=== PATIENT | female | born 1980 | race Caucasian/White ===

== ENCOUNTER → 2017-05-15 | Outpatient (CLI) | payer BC ==
[2017-05-15 10:47] LABS: Basophils % (A) 0 %; CH 29.5; Eosinophils # (A) 0.2 k/uL (0-0.7); Eosinophils % (A) 2 %; HCT 40.8 % (34.0-46.0); HGB 13.6 gm/dL (11.4-16.0); Luc # (Auto) 0.21; Luc % (Auto) 3; Lymphocytes # (A) 2.8 k/uL (1.0-4.8); Lymphocytes % (A) 38 %; MCH 29.9 pg (25.0-35.0); MCHC 33.2 g/dL (31.0-37.0); MCV 89.9 fL (80.0-100.0); Monocytes # (A) 0.2 k/uL (0-1.0); Monocytes % (A) 3 %; Neutrophils % (A) 54 %; RBC 4.54 m/uL (3.80-5.40); RDW 12.3 % (11.5-15.5); WBC 7.5 k/uL (3.8-10.6); WBC (Perox) 7.81
== END | disposition home or self-care (01) ==
LOC: LABPAT 10:13
PROVIDERS: ATTEND Obstetrics & Gynecology
DX: Z01.812 Encounter for preprocedural laboratory examination (principal)
CPT/HCPCS: 85025

== ENCOUNTER 2017-05-23 10:54 | Day surgery (SDC) | payer BC ==
[2017-05-17 12:41] VITALS: BMI 38.9
--- NOTE | 2017-05-22 19:48 | P.HPOB ---
History of Present Illness H&P Date: 05/22/17 Chief Complaint: Pelvic pain, family planning This is a 37-year-old female 0 who presents for laparoscopic bilateral tubal ligation via fulguration along with possible lysis of adhesions, possible ablation of endometriosis, and possible drainage of ovarian cysts. She complains of pelvic pain over the last 3 or 4 months that has been severe to the point that is making her vomit a couple times. So far they have been approximately a month apart right after her menses. She is experiencing daily cramping and a pressure sensation in her pelvis. She would like a tubal ligation for family planning purposes and she is no longer pursuing fertility. Pelvic ultrasound showed a uterus measuring 8.8 x 5.0 x 3.8 cm. Endometrial thickness was 8 mm. Both ovaries appeared normal size. Obstetrical history: . Gynecologic history: No history of sexual transmitted diseases. She does have a history of endometriosis diagnosed on laparoscopy in 1998 however she had a repeat laparoscopy in 2004 that was negative for endometriosis. 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 Review of Systems Constitutional: Denies chills, Denies fever Eyes: denies blurred vision, denies pain Ears, nose, mouth and throat: Denies headache, Denies sore throat Cardiovascular: Denies chest pain, Denies shortness of breath Respiratory: Denies cough Gastrointestinal: Reports vomiting (Occasionally with abdominal cramping), Denies abdominal pain, Denies diarrhea Genitourinary: Reports dysmenorrhea, Reports menorrhagia, Reports pelvic pain Menstruation: Reports menses variable, Reports period heavy Musculoskeletal: Reports low back pain Integumentary: Denies pruritus, Denies rash Neurological: Denies numbness, Denies weakness Psychiatric: Denies anxiety, Denies depression Past Medical History Past Medical History: Asthma Additional Past Medical History / Comment(s): History of endometriosis, history of kidney stones History of Any Multi-Drug Resistant Organisms: None Reported Past Surgical History: Cholecystectomy Additional Past Surgical History / Comment(s): laparoscopy x2 Past Anesthesia/Blood Transfusion Reactions: Postoperative Nausea & Vomiting ( PONV) Additional Past Anesthesia/Blood Transfusion Reaction / Comment(s): after cholecystectomy was unable to void and had a catheter Past Psychological History: No Psychological Hx Reported Smoking Status: Never smoker Past Alcohol Use History: None Reported Past Drug Use History: None Reported - Past Family History Mother Family Medical History: No Reported History Medications and Allergies Home Medications Medication Instructions Recorded Confirmed Type Cetirizine HCl [Zyrtec] 10 mg PO DAILY 05/22/17 05/22/17 History Nadolol [Corgard] 20 mg PO DAILY 05/22/17 05/22/17 History l-Norgest/E.estradiol-E.estrad 1 each PO 05/22/17 History [Seasonique 0.15-0.03-0.01 Tab] Allergies Allergy/AdvReac Type Severity Reaction Status Date / Time acetaminophen Allergy Rash/Hives Verified 05/17/17 12:32 [From Darvocet-N] propoxyphene Allergy Rash/Hives Verified 05/17/17 12:32 [From Darvocet-N] Exam Osteopathic Statement: *. No significant issues noted on an osteopathic structural exam other than those noted in the History and Physical/Consult. HEENT: Within normal limits Heart: Regular rate and rhythm Lungs: Clear to auscultation bilaterally Abdomen: Soft, nontender Pelvic exam: Uterus is anteverted, nontender, with mild tenderness in the right adnexa noted. No adnexal masses are palpated. Extremities: Negative Homans Assessment and Plan (1) Pelvic pain Status: Acute (2) Family planning Status: Acute Plan: Proceed with laparoscopic bilateral tubal ligation via fulguration, possible lysis of adhesions, possible ablation of endometriosis, possible drainage of ovarian cysts. I have discussed the risks, benefits, and alternative therapies for the above- mentioned procedure and for both sedation/anesthesia as well as necessary blood products administration, if indicated, as they pertain to this patient. The patient has indicated her understanding and acceptance of the risks and procedures discussed.
[~2017-05-23 10:54] MED LIST: DEXAMETHASONE SOD PHOSPHATE 10 MG/ML 1 ML VIAL IV ONE; LACTATED RINGERS 1,000 ML IV SCH; MIDAZOLAM 2 MG/2 ML VIAL IV PRN; ONDANSETRON 4 MG/2 ML VIAL IVP ONE; Pre Op ABX Message 1 EACH MISC MISCELLANE ONE
[2017-05-23] MEDS ORDERED: LIDOCAINE 1% 20 ML VIAL (10MG/ML) FOR IV START INTRADERMA ONE (11:33)
[2017-05-23] MEDS ORDERED: SCOPOLAMINE 1.5MG/72HR PATCH TRANSDERM ONE (11:34)
[2017-05-23] MEDS ORDERED: KETOROLAC 30 MG/ML 1 ML VIAL ONE (12:07)
[2017-05-23] MEDS ORDERED: PROPOFOL 10 MG/ML 20 ML VIAL IV ONE (12:07)
[2017-05-23] MEDS ORDERED: KETAMINE 10 MG/ML 20 ML VIAL ONE (12:07)
[2017-05-23] MEDS ORDERED: MIDAZOLAM 2 MG/2 ML VIAL ONE (12:07)
[2017-05-23] MEDS ORDERED: NEOSTIGMINE 1 MG/ML 10 ML VIAL ONE (12:07)
[2017-05-23] MEDS ORDERED: LIDOCAINE 1% INJ 10MG/ML (20 ML MDV) ONE (12:07)
[2017-05-23] MEDS ORDERED: GLYCOPYRROLATE 0.2 MG/ML 2 ML VIAL ONE (12:07)
[2017-05-23] MEDS ORDERED: diphenhydrAMINE 50 MG/ML 1 ML VIAL ONE (12:07)
[2017-05-23] MEDS ORDERED: ROCURONIUM BROMIDE 10 MG/ML 10 ML VIAL IV ONE (12:07)
[2017-05-23] MEDS ORDERED: fentaNYL (PF) 50 MCG/ML 2 ML AMP ONE (12:07)
[2017-05-23] MEDS ORDERED: SUCCINYLCHOLINE CHLORIDE 100 MG/5 ML SYR IV ONE (12:07)
[2017-05-23] MEDS ORDERED: MIDAZOLAM 2 MG/2 ML VIAL IV ONE (12:10)
[2017-05-23] MEDS ORDERED: BUPIVACAINE (PF) 0.25% 30 ML VIAL SQ ONE ×2 (12:32→12:56)
--- NOTE | 2017-05-23 13:07 | P.OP ---
Date of Procedure: 05/23/17 Preoperative Diagnosis: Pelvic pain Family planning Postoperative Diagnosis: Same Procedure(s) Performed: Laparoscopy with bilateral tubal ligation via fulguration Implants: Anesthesia: KERI Surgeon: Gwendolyn Gomez Estimated Blood Loss (ml): 5 Pathology: none sent Condition: stable Disposition: same day Indications for Procedure: This is a 37-year-old female 0 who presents for laparoscopic bilateral tubal ligation via fulguration along with possible lysis of adhesions, possible ablation of endometriosis, and possible drainage of ovarian cysts. She complains of pelvic pain over the last 3 or 4 months that has been severe to the point that is making her vomit a couple times. So far they have been approximately a month apart right after her menses. She is experiencing daily cramping and a pressure sensation in her pelvis. She would like a tubal ligation for family planning purposes and she is no longer pursuing fertility. Pelvic ultrasound showed a uterus measuring 8.8 x 5.0 x 3.8 cm. Endometrial thickness was 8 mm. Both ovaries appeared normal size. Operative Findings: Normal uterus tubes and ovaries are noted. Normal-appearing appendix is noted. No evidence of endometriosis or adhesions are noted. Description of Procedure: The patient is taken to the operating room where she is placed in the dorsal lithotomy position. She is prepped and draped in the normal sterile fashion. Bladder is drained with a catheter and then removed. Examination is performed under anesthesia. Uterus is found to be small, anteverted, with no adnexal masses palpated. Next a bivalve speculum was placed in the patient's vagina. A single-tooth tenaculum was used to grasp the anterior lip of the cervix. Uterus is sounded to 8-1/2 cm. The kroner uterine manipulator is inserted through the cervix and the balloon is inflated. The single-tooth tenaculum is removed. Speculum is removed. Next gloves are changed and attention is turned to the abdomen. The inferior umbilical fold was grasped in a transverse fashion. A small transverse incision was made with the scalpel. A hemostat is used to carry the incision down to the underlying layer of fascia. Next a towel clip was placed above the umbilicus. An 11 mm disposable blade this trocar is inserted into the peritoneal cavity under direct visualization. Once intra-abdominal placement is confirmed, the camera was removed and CO2 gas was insufflated. The insert is removed and camera was replaced. No bleeding is noted. The patient is then placed in Trendelenburg position. A small stab incision is made suprapubically and a 5 mm disposable bladeless trochars inserted into the peritoneal cavity under direct visualization. Next a probe was inserted and pelvic contents were inspected. Pictures are taken. Next a bipolar Kleppinger instrument is placed through the inferior trocar in the midportion of each tube is brought away from other structures, completely fulgurated on approximate 3 cm segment of the tube, and then the instrument was removed. Excellent hemostasis was noted on both tubes. Pictures are taken. Once no further findings are noted, the inferior trocar is removed under direct visualization. Pneumoperitoneum is released and then the upper trocar is removed. Fascial incision is closed with 0 Vicryl suture in interrupted figure- of-eight stitch. Next the skin incisions are closed with 3-0 Vicryl suture in a subcuticular fashion. Incision sites are then injected with quarter percent Marcaine. Approximately 7 mL are used. Next the kroner uterine manipulator is desufflated and removed. Minimal bleeding is noted. All sponge and needle counts are correct and the patient is taken to recovery room.
[2017-05-23 13:40] VITALS: TEMP 97.5
[2017-05-23] MEDS: HYDROmorphone 1 MG/ML 1 ML SYRINGE IVP PRN ×2 (13:40→13:46)
[2017-05-23] MEDS ORDERED: LACTATED RINGERS 1,000 ML IV ONE (14:00)
[2017-05-23] MEDS ORDERED: ONDANSETRON 4 MG/2 ML VIAL IVP ONE (14:13)
[2017-05-23] MEDS ORDERED: HYDROcodone/APAP 5-325MG 1 EACH TAB PO ONE (15:45)
[2017-05-23 17:39] VITALS: BP 134/76; PULSE 75; RESP 18
== END 2017-05-23 17:52 | disposition home or self-care (01) ==
LOC: OR 10:54
PROVIDERS: ATTEND Obstetrics & Gynecology
DX: Z30.2 Encounter for sterilization (principal); R10.2 Pelvic and perineal pain; J45.909 Unspecified asthma, uncomplicated; G43.909 Migraine, unspecified, not intractable, without status migrainosus; Z79.3 Long term (current) use of hormonal contraceptives; Z79.899 Other long term (current) drug therapy; Z88.6 Allergy status to analgesic agent; Z88.5 Allergy status to narcotic agent
CPT/HCPCS: 81025; 58670; J2250; J1200; J1100; J2710; J2405; J2001; J3010; J1885; J1170; J0330; J2704

== ENCOUNTER 2018-01-02 17:46 | Emergency (ER) | payer OTHER, BC ==
[2018-01-02] MEDS ORDERED: IBUPROFEN 600 MG TAB PO STA (18:13)
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
--- NOTE | 2018-01-02 19:15 | XR ---
EXAMINATION TYPE: XR wrist complete LT DATE OF EXAM: 01/02/2018 COMPARISON: NONE HISTORY: Pain TECHNIQUE: 4 views FINDINGS: I see no fracture nor dislocation. Joint spaces are normal. IMPRESSION: Normal left wrist exam.
--- NOTE | 2018-01-02 19:16 | XR ---
EXAMINATION TYPE: XR forearm LT DATE OF EXAM: 01/02/2018 COMPARISON: NONE HISTORY: Pain TECHNIQUE: 2 views FINDINGS: I see no fracture nor dislocation. Elbow joint and wrist joint appear intact. IMPRESSION: Negative left forearm exam.
[2018-01-02 19:20] VITALS: BP 142/92; PULSE 74; RESP 18; TEMP 98.2
== END 2018-01-02 19:39 | disposition home or self-care (01) ==
LOC: EC 17:46
DX: S60.212A Contusion of left wrist, initial encounter (principal); Z79.3 Long term (current) use of hormonal contraceptives; Z79.899 Other long term (current) drug therapy; Z88.6 Allergy status to analgesic agent; Z88.5 Allergy status to narcotic agent; V43.52XA Car driver injured in collision with other type car in traffic accident, initial encounter; Y92.411 Interstate highway as the place of occurrence of the external cause
CPT/HCPCS: 99284

== ENCOUNTER → 2018-06-25 | Outpatient (CLI) | payer BC ==
[2018-06-25 17:45] LABS: Basophils % (A) 1 %; Eosinophils # (A) 0.2 k/uL (0-0.7); Eosinophils % (A) 2 %; HCT 37.8 % (34.0-46.0); HGB 12.2 gm/dL (11.4-16.0); Lymphocytes # (A) 3.2 k/uL (1.0-4.8); Lymphocytes % (A) 34 %; MCH 28.4 pg (25.0-35.0); MCHC 32.3 g/dL (31.0-37.0); MCV 87.9 fL (80.0-100.0); Mean Platelet Volume 6.7; Monocytes # (A) 0.5 k/uL (0-1.0); Monocytes % (A) 5 %; Neutrophils # (A) 5.5 k/uL (1.3-7.7); Neutrophils % (A) 57 %; Platelet Count 359 k/uL (150-450); RDW 12.5 % (11.5-15.5); WBC 9.5 k/uL (3.8-10.6)
== END | disposition home or self-care (01) ==
LOC: LABPAT 17:00
PROVIDERS: ATTEND Obstetrics & Gynecology
DX: Z01.812 Encounter for preprocedural laboratory examination (principal)
CPT/HCPCS: 36415; 85025

== ENCOUNTER 2018-07-04 06:16 | Day surgery (SDC) | payer BC, OTHER ==
[2018-07-01 16:09] VITALS: BMI 38.9
--- NOTE | 2018-07-03 17:58 | P.HPOB ---
History of Present Illness H&P Date: 07/03/18 Chief Complaint: Menorrhagia with irregular cycle This is a 38-year-old female 0 para 0 who presents for dilation and curettage with hysteroscopy and NovaSure endometrial ablation secondary to menorrhagia with irregular cycle. She complains of heavy and painful menses. She also has been experiencing some intermittent pelvic pain along with cramping for approximately a week. Pelvic ultrasound showed uterus measuring 8.3 x 3.4 x 3.4 cm with an endometrial thickness of 9 mm. Both ovaries appear normal. She has previously had a tubal ligation for family planning. Obstetrical history: . Gynecologic history: No history of sexually transmitted diseases. She does have a history of infertility and endometriosis. Social history: She is . 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 Review of Systems Constitutional: Denies chills, Denies fever Eyes: denies blurred vision, denies pain Ears, nose, mouth and throat: Denies headache, Denies sore throat Cardiovascular: Denies chest pain, Denies shortness of breath Respiratory: Denies cough Gastrointestinal: Denies abdominal pain, Denies diarrhea, Denies nausea, Denies vomiting Genitourinary: Reports dysmenorrhea, Reports menorrhagia, Reports pelvic pain Menstruation: Reports menses variable Musculoskeletal: Reports low back pain Integumentary: Denies pruritus, Denies rash Neurological: Denies numbness, Denies weakness Psychiatric: Reports anxiety Endocrine: Denies fatigue, Denies weight change Past Medical History Past Medical History: Skin Disorder Additional Past Medical History / Comment(s): heavy menses,migraines-tx nadolol, eczema; history of endometriosis. History of Any Multi-Drug Resistant Organisms: None Reported Past Surgical History: Cholecystectomy, Tubal Ligation Additional Past Surgical History / Comment(s): laparoscopy x2 Past Anesthesia/Blood Transfusion Reactions: Motion Sickness, Postoperative Nausea & Vomiting (PONV) Additional Past Anesthesia/Blood Transfusion Reaction / Comment(s): no hx blood transfusion Past Psychological History: Anxiety Smoking Status: Never smoker Past Alcohol Use History: None Reported Past Drug Use History: None Reported - Past Family History Mother Family Medical History: No Reported History Medications and Allergies Home Medications Medication Instructions Recorded Confirmed Type Cetirizine HCl [Zyrtec] 10 mg PO DAILY 05/22/17 07/01/18 History Nadolol [Corgard] 20 mg PO HS 05/22/17 07/01/18 History Cranberry Fruit Extract [Cranberry] 200 mg PO DAILY 07/01/18 07/01/18 History Multivitamins, Thera [Multivitamin 1 tab PO DAILY 07/01/18 07/01/18 History (formulary)] Allergies Allergy/AdvReac Type Severity Reaction Status Date / Time propoxyphene Allergy Rash/Hives Verified 07/01/18 16:03 [From [place]] Exam Osteopathic Statement: *. No significant issues noted on an osteopathic structural exam other than those noted in the History and Physical/Consult. HEENT: Within normal limits Heart: Regular rate and rhythm Lungs: Clear to auscultation bilaterally Abdomen: Soft, nontender Pelvic exam: Uterus is small, anteverted, with no adnexal masses. Mild right adnexal tenderness is noted. Extremities: Negative Homans. Assessment and Plan (1) Menorrhagia with irregular cycle Status: Acute Code(s): N92.1 - EXCESSIVE AND FREQUENT MENSTRUATION WITH IRREGULAR CYCLE SNOMED Code(s): 107436151 Plan: Proceed with dilation and curettage with hysteroscopy and NovaSure endometrial ablation. I have discussed the risks, benefits, and alternative therapies for the above- mentioned procedure and for both sedation/anesthesia as well as necessary blood products administration, if indicated, as they pertain to this patient. The patient has indicated her understanding and acceptance of the risks and procedures discussed.
[~2018-07-04 06:16] MED LIST changes: +LIDOCAINE 1% 20 ML VIAL (10MG/ML) FOR IV START INTRADERMA PRN; -MIDAZOLAM 2 MG/2 ML VIAL IV PRN
[2018-07-04] MEDS ORDERED: ONDANSETRON 4 MG/2 ML VIAL IVP ONE (06:52)
[2018-07-04] MEDS ORDERED: DEXAMETHASONE SOD PHOSPHATE 10 MG/ML 1 ML VIAL IV ONE (06:55)
[2018-07-04] MEDS ORDERED: KETOROLAC 30 MG/ML 1 ML VIAL ONE (07:28)
[2018-07-04] MEDS ORDERED: fentaNYL (PF) 50 MCG/ML 2 ML AMP ONE (07:28)
[2018-07-04] MEDS ORDERED: MIDAZOLAM 2 MG/2 ML VIAL ONE (07:28)
[2018-07-04] MEDS ORDERED: LIDOCAINE 1% INJ 10MG/ML (20 ML MDV) ONE (07:28)
[2018-07-04] MEDS ORDERED: PROPOFOL 10 MG/ML 20 ML VIAL IV ONE (07:28)
--- NOTE | 2018-07-04 08:06 | P.OP ---
Date of Procedure: 07/04/18 Preoperative Diagnosis: Menorrhagia with irregular cycle Postoperative Diagnosis: Same Procedure(s) Performed: Dilation and curettage with hysteroscopy and attempted and failed NovaSure endometrial ablation Anesthesia: other (Mask general) Surgeon: Gwendolyn Gomez Estimated Blood Loss (ml): 10 Pathology: other (Endometrial curettings) Condition: stable Indications for Procedure: This is a 38-year-old female 0 para 0 who presents for dilation and curettage with hysteroscopy and NovaSure endometrial ablation secondary to menorrhagia with irregular cycle. She complains of heavy and painful menses. She also has been experiencing some intermittent pelvic pain along with cramping for approximately a week. Pelvic ultrasound showed uterus measuring 8.3 x 3.4 x 3.4 cm with an endometrial thickness of 9 mm. Both ovaries appear normal. She has previously had a tubal ligation for family planning. Operative Findings: Uterus is sounded to 9 cm. Cervix is sounded to 3 cm. Upon hysteroscopy, a dyssynchronous endometrial pattern was noted. Neither tubal ostia was completely visualized. A moderate amount of endometrial curettings were obtained. The NovaSure array was unable to be opened completely due to her narrow uterus and did not come out of the red zone on the width. Therefore NovaSure procedure was abandoned. Description of Procedure: The patient was taken to the operating room where she is placed in the dorsal lithotomy position. She is prepped and draped in the normal sterile fashion. Bladder is drained with a catheter. Examination is performed under anesthesia. Uterus is found to be small, anteverted, with no adnexal masses palpated. Next a weighted speculum was placed in the patient's vagina. A right angle retractor was used to visualize the cervix. The anterior lip of the cervix was grasped with a single-tooth tenaculum. The cervix is sounded to 3 cm. Uterus is sounded to 9 cm. Next the cervical os is dilated with Porter dilators until a hysteroscope could be passed. Hysteroscopy was performed using normal saline. The above noted findings are made and pictures are taken. Next the hysteroscope was withdrawn and the cervix is gently dilated further. Next the NovaSure array is inserted and was noted to be very difficult to open completely. At this point the width was still noted to be in the red zone. Despite removing and reinserting the array, it still stayed in the red zone. Therefore the NovaSure portion of the procedure was abandoned. The single- tooth tenaculum was removed from the cervix. Minimal bleeding was noted. All instrument removed from the vagina. All sponge counts are correct. The patient was then taken to recovery room in stable condition.
[2018-07-04 08:19] VITALS: TEMP 97.3
[2018-07-04 08:34] VITALS: RESP 18
[2018-07-04] MEDS: HYDROmorphone 0.5 MG/0.5 ML SYRINGE IVP PRN ×2 (08:36→08:46)
[2018-07-04 10:17] VITALS: BP 117/78; PULSE 74
== END 2018-07-04 10:57 | disposition home or self-care (01) ==
LOC: OR 06:16
PROVIDERS: ATTEND Obstetrics & Gynecology
DX: N92.0 Excessive and frequent menstruation with regular cycle (principal); N92.6 Irregular menstruation, unspecified; G43.909 Migraine, unspecified, not intractable, without status migrainosus; L30.9 Dermatitis, unspecified; Z87.42 Personal history of other diseases of the female genital tract; Z79.899 Other long term (current) drug therapy; Z88.5 Allergy status to narcotic agent
CPT/HCPCS: 58563; 81025; 88305; J2250; J1100; J2405; J2001; J3010; J1885; J2704; J1170

== ENCOUNTER → 2018-09-09 | Outpatient (CLI) | payer BC ==
--- NOTE | 2018-09-09 22:40 | MR ---
EXAMINATION TYPE: MR iac wo/w con DATE OF EXAM: 09/09/2018 COMPARISON: None HISTORY: Rt ear pulsatile hearing loss TECHNIQUE: Multiplanar, multisequence images of the brain and brainstem is performed without and with IV contras t, utilizing 10 mL intravenous Gadavist . Small [id number] high-resolution images through the inte rnal auditory canals. FINDINGS: Diffusion weighted images demonstrate no evidence of a recent infarct or other diffusion ab normality. There is no extra-axial fluid collection. Scattered hyperintensities are present within the deep white matter on inversion recovery T2-weighted sequences, approximately 3-5 lesions are pres ent, largest lesion in the right frontal lobe measures approximately 4 mm on axial image 23, left fro ntal lobe on axial image 32 lesion measures 5 mm. The ventricular system and cisternal spaces are nor mal in size and appearance. The brain volume is age appropriate. Midline structures demonstrate normal morphology. The craniocervical junction appears within normal limits. Post contrast images demonstrate no abnormal enhancement. The dural venous sinuses appear pa tent. The visualized sinuses are clear and the globes are intact. No abnormal enhancement. IMPRESSION: Nonspecific white matter demyelination. Consider migraine headaches, hypertension, Lyme d isease, vasculitis, multiple sclerosis in the appropriate clinical setting.
[2018-09-10 06:41] LABS: Blood Urea Nitrogen 11 mg/dL (7-17)
== END | disposition home or self-care (01) ==
LOC: RADMRIMAIN 20:50
PROVIDERS: ATTEND Otolaryngology
DX: G37.9 Demyelinating disease of central nervous system, unspecified (principal); H93.A1 Pulsatile tinnitus, right ear
CPT/HCPCS: 82565; 70553; 36415; A9585; 84520

== ENCOUNTER 2018-09-18 16:46 | Emergency (ER) | payer BC ==
[2018-09-18 17:00] VITALS: TEMP 98.7
--- NOTE | 2018-09-18 18:30 | ED ---
Chest Pain HPI - General Chief Complaint: Chest Pain Stated Complaint: CHEST PAIN Time Seen by Provider: 09/18/18 17:57 Source: patient Mode of arrival: ambulatory Limitations: no limitations - Related Data Home Medications Medication Instructions Recorded Confirmed Cetirizine HCl [Zyrtec] 10 mg PO HS 05/22/17 09/18/18 Nadolol [Corgard] 20 mg PO HS 05/22/17 09/18/18 Cranberry Fruit Extract [Cranberry] 200 mg PO HS 07/01/18 09/18/18 Multivitamins, Thera [Multivitamin 1 tab PO HS 07/01/18 09/18/18 (formulary)] Ascorbic Acid [Vitamin C] 1,000 mg PO HS 09/18/18 09/18/18 Cholecalciferol [Vitamin D3] 1,000 unit PO HS 09/18/18 09/18/18 Allergies Allergy/AdvReac Type Severity Reaction Status Date / Time peanut Allergy Anaphylaxis Verified 09/18/18 18:11 propoxyphene Allergy Rash/Hives Verified 09/18/18 18:11 [From [facility]] Review of Systems ROS Statement: Those systems with pertinent positive or pertinent negative responses have been documented in the HPI. ROS Other: All systems not noted in ROS Statement are negative. EKG Findings - EKG Comments: EKG Findings:: EKG shows normal sinus rhythm rate of 73, IN 1:30, QRS 84, QTC 416 Past Medical History Past Medical History: No Reported History Additional Past Medical History / Comment(s): migraines History of Any Multi-Drug Resistant Organisms: None Reported Past Surgical History: Cholecystectomy, Tubal Ligation Additional Past Surgical History / Comment(s): laparoscopy x2 Past Anesthesia/Blood Transfusion Reactions: Motion Sickness, Postoperative Nausea & Vomiting (PONV) Additional Past Anesthesia/Blood Transfusion Reaction / Comment(s): no hx blood transfusion Past Psychological History: No Psychological Hx Reported Smoking Status: Never smoker Past Alcohol Use History: None Reported Past Drug Use History: None Reported - Past Family History Mother Family Medical History: No Reported History General Exam Limitations: no limitations Course Vital Signs 09/18/18 09/18/18 09/18/18 16:57 18:30 19:00 Temperature 98.7 F Pulse Rate 72 72 75 Respiratory 18 17 16 Rate Blood Pressure 133/86 125/87 125/84 O2 Sat by Pulse 100 99 99 Oximetry Disposition Clinical Impression: Chest pain, Atypical chest pain Disposition: HOME SELF-CARE Condition: Good Instructions: Chest Pain (ED) Is patient prescribed a controlled substance at d/c from ED?: No Referrals: Juan Wilcox MD [Primary Care Provider] - 1-2 days
[2018-09-18 18:32] LABS: Basophils % (A) 0 %; Eosinophils # (A) 0.3 k/uL (0-0.7); Eosinophils % (A) 3 %; HCT 43.3 % (34.0-46.0); HGB 14.1 gm/dL (11.4-16.0); Lymphocytes # (A) 4.3 k/uL (1.0-4.8); Lymphocytes % (A) 35 %; MCH 28.9 pg (25.0-35.0); MCHC 32.7 g/dL (31.0-37.0); MCV 88.3 fL (80.0-100.0); Mean Platelet Volume 6.6; Monocytes # (A) 0.4 k/uL (0-1.0); Monocytes % (A) 4 %; Neutrophils # (A) 6.8 k/uL (1.3-7.7); Neutrophils % (A) 56 %; Platelet Count 499 k/uL (150-450); RDW 12.8 % (11.5-15.5)
[2018-09-18 18:44] LABS: D-Dimer 0.26 mg/L FEU (<0.60); INR 0.9 (<1.2); Partial Thromboplastin Time 23.7 sec (22.0-30.0); Prothrombin Time 9.7 sec (9.0-12.0)
--- NOTE | 2018-09-18 18:56 | XR ---
EXAMINATION TYPE: XR chest 2V DATE OF EXAM: 09/18/2018 COMPARISON: NONE HISTORY: Chest pain TECHNIQUE: Frontal and lateral views of the chest are obtained. FINDINGS: Heart and mediastinum are normal. Lungs are clear. Diaphragm is normal. Bony thorax appear s normal. Pulmonary vascularity is normal. There are chest leads. IMPRESSION: Normal chest.
[2018-09-18 19:01] LABS: Creatine Kinase 48 U/L (30-135)
[2018-09-18 19:06] LABS: ALT 28 U/L (9-52); AST 26 U/L (14-36); Albumin 4.6 g/dL (3.5-5.0); Alkaline Phosphatase 99 U/L (38-126); Anion Gap 10 mmol/L; Blood Urea Nitrogen 14 mg/dL (7-17); Calcium 10.3 mg/dL (8.4-10.2); Carbon Dioxide 27 mmol/L (22-30); Chloride 102 mmol/L (98-107); Glucose 89 mg/dL (74-99); Lipase 109 U/L (23-300); Magnesium 2.3 mg/dL (1.6-2.3); Potassium 4.4 mmol/L (3.5-5.1); Sodium 139 mmol/L (137-145); Total Bilirubin 0.3 mg/dL (0.2-1.3); Total Protein 8.3 g/dL (6.3-8.2)
[2018-09-18 19:14] LABS: Creatine Kinase MB 0.3 ng/mL (0.0-2.4); Troponin I <0.012 ng/mL (0.000-0.034)
[2018-09-19 03:49] VITALS: BP 116/76; PULSE 80; RESP 18
== END 2018-09-18 21:52 | disposition home or self-care (01) ==
LOC: EC 16:46
DX: R07.89 Other chest pain (principal); Z79.899 Other long term (current) drug therapy; Z91.010 Allergy to peanuts; Z88.5 Allergy status to narcotic agent
CPT/HCPCS: 36415; 71046; 80053; 82550; 82553; 83690; 83735; 83880; 84484; 85025; 85379; 85610; 85730; 93005; 99285

== ENCOUNTER → 2018-09-25 | Outpatient (CLI) | payer BC ==
--- NOTE | 2018-09-26 08:50 | US ---
EXAMINATION TYPE: US carotid duplex BILAT DATE OF EXAM: 09/25/2018 COMPARISON: NONE CLINICAL HISTORY: H93.19 Tinnitus, unspec ear. EXAM MEASUREMENTS: RIGHT: Peak Systolic Velocity (PSV) cm/sec ----- Right CCA: 101.1 ----- Right ICA: 111.3 ----- Right ECA: 118.6 ICA/CCA ratio: 1.1 RIGHT: End Diastole cm/sec ----- Right CCA: 34.3 ----- Right ICA: 43.0 ----- Right ECA: 32.8 LEFT: Peak Systolic Velocity (PSV) cm/sec ----- Left CCA: 104.0 ----- Left ICA: 107.1 ----- Left ECA: 95.6 ICA/CCA ratio: 1.0 LEFT: End Diastole cm/sec ----- Left CCA: 40.1 ----- Left ICA: 42.8 ----- Left ECA: 23.3 VERTEBRALS (direction of flow): Right Vertebral: Antegrade Left Vertebral: Antegrade Rhythm: Normal IMPRESSION: Mild degree of grayscale atheromatous plaquing with no sonographically evident hemodynam ically significant stenosis within either visualized carotid arterial system. Criteria for Assigning % of Stenosis / Diameter reduction (Estimation based on the indirect measurements of the internal carotid artery velocities (ICA PSV). 1. Normal (no stenosis)=ICA PSV < 125 cm/s: ratio < 2.0: ICA EDV<40 cm/s. 2. Less than 50% stenosis=ICA PSV < 125 cm/s: ratio < 2.0: ICA EDV<40 cm/s. 3. 50 to 69% stenosis=ICA PSV of 125 to 230 cm/s: ration 2.0 ? 4.0: ICA EDV 40-100 cm/s. 4. Greater than 70% stenosis to near occlusion= ICA PSV > 230 cm/s: ratio > 4.0: ICA EDV > 100 cm/s. 5. Near occlusion= ICA PSV velocities may be low or undetectable: variable ratio and ICA EDV. 6. Total occlusion=unable to detect flow.
== END | disposition home or self-care (01) ==
LOC: RADUSWWP 16:48
PROVIDERS: ATTEND Otolaryngology
DX: I70.90 Unspecified atherosclerosis (principal); H93.A1 Pulsatile tinnitus, right ear
CPT/HCPCS: 93880

== ENCOUNTER → 2018-09-27 | Outpatient (CLI) | payer BC ==
[2018-09-27 16:21] LABS: Anion Gap 6.6 mmol/L (4.00-12.00); Calcium 9.2 mg/dL (8.7-10.3); Carbon Dioxide 26.4 mmol/L (21.6-31.8); Potassium 4.8 mmol/L (3.5-5.5)
[2018-09-27 16:22] LABS: Albumin/Globulin Ratio 1.82 (1.20-2.10); Globulin 2.2 g/dL (1.6-3.3); Total Bilirubin 0.3 mg/dL (0.3-1.2); Total Protein 6.2 g/dL (6.2-8.2)
[2018-09-27 16:31] LABS: T4, Free (Free Thyroxine) 0.9 ng/dL (0.80-1.80)
== END ==
LOC: LABWHC1 09:38
PROVIDERS: ATTEND Otolaryngology
DX: R93.89 Abnormal findings on diagnostic imaging of other specified body structures (principal); R07.9 Chest pain, unspecified
CPT/HCPCS: 36415; 80053; 80061; 84439; 84443; 86038; 86618

== ENCOUNTER → 2018-10-01 | Outpatient (CLI) | payer BC ==
--- NOTE | 2018-10-01 10:36 | P.STRESS ---
- Stress Test Note Stress Test Results/Findings: Exam Performed: stress test Exam Date: 10/01/18 Reason for Exam: Chest Pain Height: 5 ft 3 in Weight: 99.79 kg Protocol: Yayo Stage: 2 Duration of Exercise: 8:25 Resting Heart Rate: 93 Resting Blood Pressure: 118/91 Maximum Achieved Heart Rate: 160 Maximum Achieved Blood Pressure: 203/80 85% PMHR: 155 100% PMHR: 182 METS: 10.1 Technologist Comment: Stress Test Results/Findings: This is a 38-year-old female with history of hypertension being treated for symptoms of chest pain. Stress data: Baseline EKG showed sinus rhythm with normal MS interval and QRS duration. Blood pressure at rest is 118/91 with pulse rate of 93. Patient walked on the Yayo protocol for 8 minutes and 25 seconds achieving a maximum heart rate of 160 with a blood pressure 170/84. EKGs taken during and after exercise did not show any changes to suggest ischemia. Patient did not experience any chest pain. Final impression: #1. Negative stress test #2. Patient did not express any chest pain. #3. No arrhythmias noted. #4. Patient's exercise capacity is average
--- NOTE | 2018-10-10 09:46 | EST ---
Stress Test Results/Findings: Exam Performed: stress test Exam Date: 10/01/18 Reason for Exam: Chest Pain Height: 5 ft 3 in Weight: 99.79 kg Protocol: Yayo Stage: 2 Duration of Exercise: 8:25 Resting Heart Rate: 93 Resting Blood Pressure: 118/91 Maximum Achieved Heart Rate: 160 Maximum Achieved Blood Pressure: 203/80 85% PMHR: 155 100% PMHR: 182 METS: 10.1 Technologist Comment: Stress Test Results/Findings: This is a 38-year-old female with history of hypertension being treated for symptoms of chest pain. Stress data: Baseline EKG showed sinus rhythm with normal MT interval and QRS duration. Blood pressure at rest is 118/91 with pulse rate of 93. Patient walked on the Yayo protocol for 8 minutes and 25 seconds achieving a maximum heart rate of 160 with a blood pressure 170/84. EKGs taken during and after exercise did not show any changes to suggest ischemia. Patient did not experience any chest pain. Final impression: #1. Negative stress test #2. Patient did not express any chest pain. #3. No arrhythmias noted. #4. Patient's exercise capacity is average MTDD
== END | disposition home or self-care (01) ==
LOC: RADNMMAIN 08:48
PROVIDERS: ATTEND Family Medicine
DX: R30.0 Dysuria (principal)
CPT/HCPCS: 93017

== ENCOUNTER → 2018-10-30 | Outpatient (CLI) | payer BC ==
[2018-10-30 14:26] LABS: Basophils % (A) 0 %; Eosinophils # (A) 0.2 k/uL (0-0.7); Eosinophils % (A) 2 %; HCT 40.9 % (34.0-46.0); HGB 13.5 gm/dL (11.4-16.0); Lymphocytes # (A) 3.2 k/uL (1.0-4.8); Lymphocytes % (A) 31 %; MCH 29.8 pg (25.0-35.0); MCHC 33.1 g/dL (31.0-37.0); MCV 90.2 fL (80.0-100.0); Mean Platelet Volume 7.2; Monocytes # (A) 0.5 k/uL (0-1.0); Monocytes % (A) 5 %; Neutrophils # (A) 6.3 k/uL (1.3-7.7); Neutrophils % (A) 60 %; Platelet Count 382 k/uL (150-450); RBC 4.54 m/uL (3.80-5.40); RDW 12.8 % (11.5-15.5); WBC 10.5 k/uL (3.8-10.6)
[2018-10-30 15:58] LABS: Erythrocyte Sedimentation Rate 43 mm/hr (0-20)
== END | disposition home or self-care (01) ==
LOC: LABWHC1 12:54
PROVIDERS: ATTEND Family Medicine
DX: R70.0 Elevated erythrocyte sedimentation rate (principal)
CPT/HCPCS: 36415; 85025; 85652

== ENCOUNTER → 2018-12-25 | Outpatient (CLI) | payer BC ==
[2018-12-25 17:39] LABS: Basophils # (A) 0.1 k/uL (0-0.2); Basophils % (A) 1 %; Eosinophils # (A) 0.1 k/uL (0-0.7); Eosinophils % (A) 1 %; HCT 40.6 % (34.0-46.0); HGB 12.7 gm/dL (11.4-16.0); Lymphocytes # (A) 5.8 k/uL (1.0-4.8); MCH 28.6 pg (25.0-35.0); MCHC 31.3 g/dL (31.0-37.0); MCV 91.3 fL (80.0-100.0); Mean Platelet Volume 6.6; Monocytes # (A) 0.6 k/uL (0-1.0); Monocytes % (A) 5 %; Neutrophils # (A) 5.1 k/uL (1.3-7.7); Neutrophils % (A) 43 %; Platelet Count 446 k/uL (150-450); RBC 4.45 m/uL (3.80-5.40); RDW 12.7 % (11.5-15.5)
[2018-12-25 17:44] LABS: Lymphocytes % (A) 49 %
[2018-12-25 19:08] LABS: Erythrocyte Sedimentation Rate 18 mm/hr (0-20)
== END | disposition home or self-care (01) ==
LOC: LABWHC1 16:49
PROVIDERS: ATTEND Family Medicine
DX: R70.0 Elevated erythrocyte sedimentation rate (principal)
CPT/HCPCS: 36415; 85025; 85652

== ENCOUNTER → 2019-07-18 | Outpatient (CLI) | payer BC ==
[2019-07-18 10:50] LABS: Basophils % (A) 1 %; Eosinophils # (A) 0.2 k/uL (0-0.7); Eosinophils % (A) 2 %; HCT 39.9 % (34.0-46.0); HGB 13.4 gm/dL (11.4-16.0); Lymphocytes # (A) 2.6 k/uL (1.0-4.8); Lymphocytes % (A) 33 %; MCH 30.1 pg (25.0-35.0); MCHC 33.7 g/dL (31.0-37.0); MCV 89.4 fL (80.0-100.0); Mean Platelet Volume 6.1; Monocytes # (A) 0.4 k/uL (0-1.0); Monocytes % (A) 5 %; Neutrophils # (A) 4.4 k/uL (1.3-7.7); Neutrophils % (A) 56 %; Platelet Count 388 k/uL (150-450); RBC 4.46 m/uL (3.80-5.40); RDW 12.5 % (11.5-15.5); WBC 7.8 k/uL (3.8-10.6)
[2019-07-18 16:48] LABS: African American GFR (CKD) 126.5 (60.0-200.0); Albumin 4.3 g/dL (3.80-4.90); Albumin/Globulin Ratio 1.79 (1.60-3.17); BUN/Creat Ratio 14.29 Ratio (12.00-20.00); Calcium 9.5 mg/dL (8.7-10.3); Chol/HDL Ratio 3.63; Globulin 2.4 g/dL (1.6-3.3); LDL Cholesterol,Calculated 134.6 mg/dL (0.0-131.0); Potassium 4.1 mmol/L (3.5-5.5); Total Bilirubin 0.4 mg/dL (0.2-1.2); Total Protein 6.7 g/dL (6.2-8.2); VLDL Calculation 28.4 mg/dL (5.00-40.00)
== END | disposition home or self-care (01) ==
LOC: LABWHC1 10:14
PROVIDERS: ATTEND Family Medicine
DX: I10 Essential (primary) hypertension (principal); Z13.9 Encounter for screening, unspecified
CPT/HCPCS: 36415; 80053; 80061; 82306; 84443; 85025

== ENCOUNTER → 2020-07-07 | Outpatient (CLI) | payer BC ==
--- NOTE | 2020-07-08 11:54 | MM ---
Reason for exam: screening (asymptomatic). Last mammogram was performed 5 years and 2 months ago. History: Patient is nulliparous. Family history of breast cancer in aunt at age 60 and breast cancer in paternal grandmother. Physical Findings: A clinical breast exam by your physician is recommended on an annual basis and results should be correlated with mammographic findings. MG 3D Screening Mammo W/Cad Bilateral CC and MLO view(s) were taken. Prior study comparison: May 20, 2015, bilateral MG screening mammo w CAD. The breast tissue is heterogeneously dense. This may lower the sensitivity of mammography. Finding: There is a 6 mm obscured round mass located 9 cm from the nipple in the upper outer quadrant, middle position of the right breast CC 57/84 and MLO 17/95. New finding since May 20, 2015. ASSESSMENT: Incomplete: need additional imaging evaluation, BI-RAD 0 RECOMMENDATION: Ultrasound of the right breast. [facility] will attempt to contact patient to return for ultrasound.
== END | disposition home or self-care (01) ==
LOC: RADMAMWWP 13:48
PROVIDERS: ATTEND Obstetrics & Gynecology
DX: Z12.31 Encounter for screening mammogram for malignant neoplasm of breast (principal); Z80.3 Family history of malignant neoplasm of breast
CPT/HCPCS: 77063; 77067

== ENCOUNTER → 2020-07-15 | Outpatient (CLI) | payer BC ==
--- NOTE | 2020-07-18 10:36 | USB ---
Reason for exam: additional evaluation requested from abnormal screening. History: Patient is nulliparous. Family history of breast cancer in aunt at age 60 and breast cancer in paternal grandmother. Physical Findings: Nurse did not find any significant physical abnormalities on exam. US Breast Workup Limited RT Right limited breast ultrasound including focal area of concern, retroareolar and axilla demonstrates no cystic or solid lesion seen. These results were verbally communicated with the patient and result sheet given to the patient on 07/15/20. ASSESSMENT: Probably benign, BI-RAD 3 RECOMMENDATION: Follow-up diagnostic mammogram of the right breast in 6 months.
== END | disposition home or self-care (01) ==
LOC: RADUSWWP 08:56
PROVIDERS: ATTEND Obstetrics & Gynecology
DX: R92.8 Other abnormal and inconclusive findings on diagnostic imaging of breast (principal)

== ENCOUNTER → 2020-10-18 | Outpatient (CLI) | payer BC ==
[2020-10-18 16:56] LABS: Basophils # (A) 0.1 k/uL (0-0.2); Basophils % (A) 1 %; Eosinophils # (A) 0.2 k/uL (0-0.7); Eosinophils % (A) 2 %; HGB 12.5 gm/dL (11.4-16.0); Lymphocytes # (A) 3.4 k/uL (1.0-4.8); Lymphocytes % (A) 32 %; MCH 30.5 pg (25.0-35.0); MCHC 33.8 g/dL (31.0-37.0); MCV 90.1 fL (80.0-100.0); Mean Platelet Volume 7.2; Monocytes # (A) 0.4 k/uL (0-1.0); Monocytes % (A) 4 %; Neutrophils # (A) 6.4 k/uL (1.3-7.7); Neutrophils % (A) 60 %; Platelet Count 377 k/uL (150-450); RDW 13.5 % (11.5-15.5); WBC 10.7 k/uL (3.8-10.6)
[2020-10-21 06:07] LABS: Mycoplasma IgG Antibody (EIA) 1.57 INDEX (<=0.90); Mycoplasma IgM Antibody 0.39 INDEX (<=0.90)
== END | disposition home or self-care (01) ==
LOC: LABWHC1 16:23
PROVIDERS: ATTEND Family Medicine
DX: Z20.828 Contact with and (suspected) exposure to other viral communicable diseases (principal); R05 Cough
CPT/HCPCS: 36415; 85025; 86738; 86769

== ENCOUNTER → 2020-10-18 | Outpatient (CLI) | payer BC ==
--- NOTE | 2020-10-19 09:10 | XR ---
EXAMINATION TYPE: XR chest 2V DATE OF EXAM: 10/18/2020 COMPARISON: 09/18/2018 TECHNIQUE: PA and lateral views submitted. HISTORY: Shortness of breath FINDINGS: The lungs are clear and there is no pneumothorax, pleural effusion, or focal pneumonia. Heart size normal. No overt failure. Hypertrophic and degenerative changes spine. IMPRESSION: 1. No acute process.
== END | disposition home or self-care (01) ==
LOC: RAD 16:49
PROVIDERS: ATTEND Family Medicine
DX: R05 Cough (principal)
CPT/HCPCS: 71046

== ENCOUNTER 2020-10-29 12:46 | Emergency (ER) | payer BC ==
[2020-10-29 12:52] VITALS: RESP 18; TEMP 98.1
[2020-10-29 13:42] LABS: Basophils # (A) 0.1 k/uL (0-0.2); Basophils % (A) 1 %; Eosinophils # (A) 0.3 k/uL (0-0.7); Eosinophils % (A) 2 %; HCT 41.7 % (34.0-46.0); HGB 14.2 gm/dL (11.4-16.0); Lymphocytes # (A) 4.2 k/uL (1.0-4.8); Lymphocytes % (A) 28 %; MCH 30.7 pg (25.0-35.0); MCHC 34.1 g/dL (31.0-37.0); Mean Platelet Volume 7.1; Monocytes # (A) 0.9 k/uL (0-1.0); Monocytes % (A) 6 %; Neutrophils # (A) 9.5 k/uL (1.3-7.7); Neutrophils % (A) 63 %; Platelet Count 462 k/uL (150-450); RBC 4.64 m/uL (3.80-5.40); RDW 13.4 % (11.5-15.5); WBC 15.1 k/uL (3.8-10.6)
[2020-10-29 13:55] LABS: ALT 22 U/L (4-34); AST 21 U/L (14-36); African American GFR (CKD) >90 (>60 ml/min/1.73 sqM); Alkaline Phosphatase 75 U/L (38-126); Anion Gap 9 mmol/L; Blood Urea Nitrogen 12 mg/dL (7-17); Calcium 9.7 mg/dL (8.4-10.2); Carbon Dioxide 26 mmol/L (22-30); Chloride 103 mmol/L (98-107); Glucose 109 mg/dL (74-99); Non-African American GFR(CKD) >90 (>60 ml/min/1.73 sqM); Potassium 3.9 mmol/L (3.5-5.1); Sodium 138 mmol/L (137-145); Total Bilirubin 0.7 mg/dL (0.2-1.3); Total Protein 7.3 g/dL (6.3-8.2)
[2020-10-29 14:04] LABS: D-Dimer 0.18 mg/L FEU (<0.60); INR 0.9 (<1.2); Partial Thromboplastin Time 21.6 sec (22.0-30.0); Prothrombin Time 9.9 sec (9.0-12.0)
--- NOTE | 2020-10-29 14:04 | ED ---
General Adult HPI - General Chief complaint: Chest Pain Stated complaint: Chest Tightness Time Seen by Provider: 10/29/20 12:59 Source: patient Mode of arrival: ambulatory Limitations: no limitations - History of Present Illness Initial comments: Jonna is a 40-year-old female presents the ER today for reevaluation of chest pain she's been experiencing since July 2020. Patient reports she began having chest pain that is pleuritic in nature, worse with deep inspiration, exertion or laying on her sides. Since July she's been seen by her primary care she's been diagnosed with mycoplasma pneumonia. She is treated with 2 rounds antibiotics and 4 rounds of steroids last dose of steroids was yesterday. Patient reports that despite being compliant with all his medication she has persistent discomfort. She reports exertional dyspnea. Patient describes the discomfort as sharp radiating from the sternum out to the sides of both lungs and occasionally all the way around to her scapula. Pain is worse with laying on her side which is how patient usually sleeps so she is also suffering from some sleep deprivation. Patient states she's been referred to pulmonology and is scheduled to be seen by Dr. Dewey on Saturday of this week but didn't want to wait. She has no cardiac history, no personal or family history of DVT, PE or clotting disorder. She is a nonsmoker she is not on any estrogen has had no recent immobilization or travel she's not noted any swelling in her lower extremities. - Related Data Home Medications Medication Instructions Recorded Confirmed Cetirizine HCl [Zyrtec] 10 mg PO HS 05/22/17 09/18/18 nadoloL [Corgard] 20 mg PO HS 05/22/17 09/18/18 Cranberry Fruit Extract [Cranberry] 200 mg PO HS 07/01/18 09/18/18 Multivitamins, Thera [Multivitamin 1 tab PO HS 07/01/18 09/18/18 (formulary)] Ascorbic Acid [Vitamin C] 1,000 mg PO HS 09/18/18 09/18/18 Cholecalciferol [Vitamin D3] 1,000 unit PO HS 09/18/18 09/18/18 Allergies Allergy/AdvReac Type Severity Reaction Status Date / Time NSAIDS (Non-Steroidal Allergy Anaphylaxis Verified 10/29/20 12:52 Anti-Inflamma peanut Allergy Anaphylaxis Verified 09/18/18 18:11 propoxyphene Allergy Rash/Hives Verified 09/18/18 18:11 [From Kb-Elizabet] Review of Systems ROS Statement: Those systems with pertinent positive or pertinent negative responses have been documented in the HPI. ROS Other: All systems not noted in ROS Statement are negative. Past Medical History Past Medical History: No Reported History Additional Past Medical History / Comment(s): migraines History of Any Multi-Drug Resistant Organisms: None Reported Past Surgical History: Cholecystectomy, Tubal Ligation Additional Past Surgical History / Comment(s): laparoscopy x2 Past Anesthesia/Blood Transfusion Reactions: Motion Sickness, Postoperative Nausea & Vomiting (PONV) Additional Past Anesthesia/Blood Transfusion Reaction / Comment(s): no hx blood transfusion Past Psychological History: No Psychological Hx Reported Smoking Status: Never smoker Past Alcohol Use History: None Reported Past Drug Use History: None Reported - Past Family History Mother Family Medical History: No Reported History General Exam - General Exam Comments Initial Comments: Physical Exam GENERAL: Patient is well-developed and well-nourished. Patient is nontoxic and well- hydrated and is in no distress. HENT: Normocephalic, Atraumatic. EYES: PERRL, EOMI PULMONARY: Unlabored respirations. No audible rales rhonchi or wheezing was noted. CARDIOVASCULAR: There is a regular rate and rhythm without any murmurs gallops or rubs. ABDOMEN: Soft and nontender with normal bowel sounds. SKIN: Skin is clear with no lesions or rashes and otherwise unremarkable. : Deferred NEUROLOGIC: Patient is alert and oriented x3. Moving all extremities spontaneously MUSCULOSKELETAL: Normal extremities with adequate strength and full range of motion. No lower extremity swelling or edema. No calf tenderness. PSYCHIATRIC: Normal psychiatric evaluation. Limitations: no limitations Course Vital Signs 10/29/20 10/29/20 10/29/20 12:48 13:40 15:17 Temperature 98.1 F Pulse Rate 88 68 Respiratory 18 18 18 Rate Blood Pressure 141/99 122/79 O2 Sat by Pulse 99 99 Oximetry EKG Findings - EKG Comments: EKG Findings:: KG was obtained due to complaint of chest pain, EKG was obtained at 1301, rate is 79 rhythm is sinus there is normal axis, normal intervals no acute ST elevations or depressions no evidence of acute ischemia or infarction. Medical Decision Making - Medical Decision Making Patient was seen and evaluated history is obtained from the patient Patient with a history of mycoplasma pneumonia treated with antibiotics and steroids has persistent pleuritic sounding chest pain for 4 months duration, pain is persistent today unchanged from previous Labs including a d-dimer were obtained Patient is PERC score 0 and Wells negative CXR unremarkable D-dimer not elevated Patient has had no tachycardia or hypoxia while in the emergency Department her EKG was nonischemic chest x-ray unremarkable d-dimer is negative. These results were discussed with the patient, advised that I suspect she is suffering from pleuritic chest pain unfortunately due to her ALLERGY is not a candidate for evangelina ing NSAIDs. Recommended continue supportive care with Tylenol and follow up with pulmonology as scheduled. Patient agreeable to this plan and return parameters discussed patient discharged home in stable condition. - Lab Data Result diagrams: 10/29/20 13:34 10/29/20 13:34 Lab Results 10/29/20 10/29/20 10/29/20 Range/Units 13:34 13:34 13:34 WBC 15.1 H (3.8-10.6) k/uL RBC 4.64 (3.80-5.40) m/uL Hgb 14.2 (11.4-16.0) gm/dL Hct 41.7 (34.0-46.0) % MCV 90.0 (80.0-100.0) fL MCH 30.7 (25.0-35.0) pg MCHC 34.1 (31.0-37.0) g/dL RDW 13.4 (11.5-15.5) % Plt Count 462 H (150-450) k/uL MPV 7.1 Neutrophils % 63 % Lymphocytes % 28 % Monocytes % 6 % Eosinophils % 2 % Basophils % 1 % Neutrophils # 9.5 H (1.3-7.7) k/uL Lymphocytes # 4.2 (1.0-4.8) k/uL Monocytes # 0.9 (0-1.0) k/uL Eosinophils # 0.3 (0-0.7) k/uL Basophils # 0.1 (0-0.2) k/uL PT 9.9 (9.0-12.0) sec INR 0.9 (<1.2) APTT 21.6 L (22.0-30.0) sec D-Dimer 0.18 (<0.60) mg/L FEU Sodium 138 (137-145) mmol/L Potassium 3.9 (3.5-5.1) mmol/L Chloride 103 (98-107) mmol/L Carbon Dioxide 26 (22-30) mmol/L Anion Gap 9 mmol/L BUN 12 (7-17) mg/dL Creatinine 0.64 (0.52-1.04) mg/dL Est GFR (CKD-EPI)AfAm >90 (>60 ml/min/1.73 sqM) Est GFR (CKD-EPI)NonAf >90 (>60 ml/min/1.73 sqM) Glucose 109 H (74-99) mg/dL Calcium 9.7 (8.4-10.2) mg/dL Total Bilirubin 0.7 (0.2-1.3) mg/dL AST 21 (14-36) U/L ALT 22 (4-34) U/L Alkaline Phosphatase 75 (38-126) U/L Total Protein 7.3 (6.3-8.2) g/dL Albumin 4.0 (3.5-5.0) g/dL Disposition Clinical Impression: Pleuritic chest pain Disposition: HOME SELF-CARE Condition: Stable Instructions (If sedation given, give patient instructions): Pleurisy (DC) Additional Instructions: You have no risk factors for blood clot in your lungs (also known as Pulmonary Embolism), your vital signs were normal, your chest xray was normal, your d-dmer which is a marker of blood clots Is patient prescribed a controlled substance at d/c from ED?: No Referrals: Juan Wilcox MD [Primary Care Provider] - 1-2 days
--- NOTE | 2020-10-29 14:32 | XR ---
EXAMINATION TYPE: XR chest 2V DATE OF EXAM: 10/29/2020 COMPARISON: 10/18/2020 HISTORY: Chest pain for 4 months TECHNIQUE: FINDINGS: Heart and mediastinum are normal. Lungs are clear. Diaphragm is normal. Bony thorax appears intact. There are chest leads. IMPRESSION: No active cardiopulmonary disease. Normal heart. No change.
[2020-10-29 15:18] VITALS: BP 122/79; PULSE 68
== END 2020-10-29 15:24 | disposition home or self-care (01) ==
LOC: EC 12:46
DX: R07.81 Pleurodynia (principal); G43.909 Migraine, unspecified, not intractable, without status migrainosus; Z79.899 Other long term (current) drug therapy; Z88.6 Allergy status to analgesic agent; Z91.010 Allergy to peanuts; Z88.5 Allergy status to narcotic agent
CPT/HCPCS: 36415; 71046; 80053; 85025; 85379; 85610; 85730; 93005; 99285

== ENCOUNTER → 2020-11-24 | Outpatient (CLI) | payer BC ==
[2020-11-24 20:33] LABS: Anti-DNA, DS unit <1.0 IU/mL; DNA Double-Stranded NEGATIVE (NEGATIVE); JO-1 IgG Antibody <0.2 AI; Scleroderma SC-70 Ab <0.2 AI
== END ==
LOC: LABWHC1 13:15
PROVIDERS: ATTEND Internal Medicine Critical Care Medicine
DX: R07.89 Other chest pain (principal)
CPT/HCPCS: 36415; 83516; 86038; 86225; 86235

== ENCOUNTER → 2021-02-09 | Outpatient (CLI) | payer BC ==
--- NOTE | 2021-02-10 10:13 | MM ---
Reason for exam: follow-up at short interval from prior study. Last mammogram was performed 7 months ago. History: Patient is nulliparous. Family history of breast cancer in aunt at age 60 and breast cancer in paternal grandmother. Took hormonal contraceptives for 15 years. Physical Findings: Nurse did not find any significant physical abnormalities on exam. MG 3D Diag Mammo W/Cad RT CC and MLO view(s) were taken of the right breast. Prior study comparison: July 07, 2020, bilateral MG 3d screening mammo w/cad. May 20, 2015, bilateral MG screening mammo w CAD. There are scattered fibroglandular densities. There are benign appearing round calcifications in the right breast. There is chronic nodularity in the right breast. These results were verbally communicated with the patient and result sheet given to the patient on 02/09/21. ASSESSMENT: Benign, BI-RAD 2 RECOMMENDATION: Return to routine screening mammogram schedule for both breasts. Back on schedule.
== END | disposition home or self-care (01) ==
LOC: RADMAMWWP 14:48
PROVIDERS: ATTEND Obstetrics & Gynecology
DX: R92.1 Mammographic calcification found on diagnostic imaging of breast (principal); N63.10 Unspecified lump in the right breast, unspecified quadrant; Z80.3 Family history of malignant neoplasm of breast
CPT/HCPCS: 77061; 77065

== ENCOUNTER 2021-03-23 | Inpatient (IN) | payer BC | END 2021-03-25 14:32 | disposition home or self-care (01) | DRG 661 | PROVIDERS: ADMIT Urology | PROC: 0T778DZ Dilation of Left Ureter with Intraluminal Device, Via Natural or Artificial Opening Endoscopic (ICD-10-PCS; principal; 2021-03-25) | PROC: BT1F1ZZ Fluoroscopy of Left Kidney, Ureter and Bladder using Low Osmolar Contrast (ICD-10-PCS; 2021-03-25) | DX: N13.6 Pyonephrosis (principal); Z87.442 Personal history of urinary calculi; Z20.822 Contact with and (suspected) exposure to COVID-19; G43.909 Migraine, unspecified, not intractable, without status migrainosus; Z90.6 Acquired absence of other parts of urinary tract; Z79.899 Other long term (current) drug therapy; Z98.51 Tubal ligation status; Z88.5 Allergy status to narcotic agent | CPT/HCPCS: 36415; 74176; 74420; 80053; 81001; 81025; 83605; 83690; 85025; 87040; 87077; 87086; 87186; 87635; 96361; 96374; 96375; 99285 ==

== ENCOUNTER 2021-04-06 12:28 | Day surgery (SDC) | payer BC ==
[2021-04-03 11:54] VITALS: BMI 39.8
--- NOTE | 2021-04-06 07:48 | P.HPIHPCON ---
History of Present Illness H&P Date: 04/06/21 Chief Complaint: Left ureteral stone This is a 40-year-old female with history of an 8 mm left UPJ stone, she presented with sepsis secondary to her stone on 03/25, she underwent stent placement on March 25. She presents today for definitive stone management. Discussed with her surgical option for her stone. She agreed to proceed with left-sided ureteroscopy with holmium laser, discussed with her the risk which includes but not limited to bleeding, infection, injury to the ureter, potential of needing additional procedures. Discussed also risk from anesthesia. She understood all the risk and agreed to proceed with left-sided ureteroscopy, with holmium laser lithotripsy, stone basketing and stent removal Consent for Procedure: I have explained the operation/procedure to the patient, including the risks, benefits, side effects, alternative therapies (including not receiving the proposed treatment or service), the likelihood of the patient achieving his/her goals, and potential recuperation problems for the procedure/sedation/analgesia, as well as any blood products, if indicated. I also explained to the patient the risks, benefits and side effects of the alternatives, as well as the risks related to not receiving the proposed procedure, care, treatment, or services. Past Medical History Past Medical History: Chest Pain / Angina, Hypertension, Skin Disorder Additional Past Medical History / Comment(s): migraines, kidney stones, hx chest pain-all tests neg per pt, eczema, psoriasis, endometriosis, intracranial hypertension,recemt UTI-finished antibiotics 04/01/21 History of Any Multi-Drug Resistant Organisms: None Reported Past Surgical History: Cholecystectomy, Tubal Ligation Additional Past Surgical History / Comment(s): exploratory laparoscopy x2, sigmoid sinus bone resurfacing rt ear, cystoscopy/left stent 03/23/21 Past Anesthesia/Blood Transfusion Reactions: Motion Sickness, Postoperative Nausea & Vomiting (PONV) Additional Past Anesthesia/Blood Transfusion Reaction / Comment(s): no hx blood transfusion Smoking Status: Never smoker - Past Family History Mother Family Medical History: No Reported History Medications and Allergies Home Medications Medication Instructions Recorded Confirmed Type Cetirizine HCl [Zyrtec] 10 mg PO HS 05/22/17 04/03/21 History nadoloL [Corgard] 20 mg PO BID 05/22/17 04/03/21 History Cranberry Fruit Extract [Cranberry] 200 mg PO HS 07/01/18 04/03/21 History Multivitamins, Thera [Multivitamin 1 tab PO HS 07/01/18 04/03/21 History (formulary)] Cholecalciferol [Vitamin D3] 1,000 unit PO HS 09/18/18 04/03/21 History Furosemide [Lasix] 30 mg PO DAILY 03/23/21 04/03/21 History Cephalexin [Keflex] 500 mg PO Q8HR 7 Days #21 cap 03/25/21 04/03/21 Rx Tamsulosin [Flomax] 0.4 mg PO DAILY #30 cap 03/25/21 04/03/21 Rx Acetaminophen-Codeine 300-30mg 1 tab PO Q4H PRN 04/03/21 04/03/21 History [Tylenol w/codeine #3] Allergies Allergy/AdvReac Type Severity Reaction Status Date / Time NSAIDS (Non-Steroidal Allergy Anaphylaxis Verified 04/03/21 11:44 Anti-Inflamma peanut Allergy Anaphylaxis Verified 04/03/21 11:44 propoxyphene Allergy Rash/Hives Verified 04/03/21 11:44 [From KbElizabet] Surgical - Exam - General no distress, no pain - Eyes PERRL, normal ocular movement - ENT normal nares, normal mucosa - Respiratory normal expansion, normal respiratory effort - Psychiatric oriented to time, oriented to person, oriented to place Assessment and Plan Assessment: 40-year-old female history of an 8 mm left-sided UPJ stone -Or for left-sided ureteroscopy, with holmium laser, stent removal
[~2021-04-06 12:28] MED LIST changes: -DEXAMETHASONE SOD PHOSPHATE 10 MG/ML 1 ML VIAL IV ONE; +DEXAMETHASONE SOD PHOSPHATE 4 MG/ML 1 ML VIAL IV ONE; +LIDOCAINE 1% (10MG/ML) FOR IV START INTRADERMA PRN; -LIDOCAINE 1% 20 ML VIAL (10MG/ML) FOR IV START INTRADERMA PRN; -Pre Op ABX Message 1 EACH MISC MISCELLANE ONE
--- NOTE | 2021-04-06 12:50 | XR ---
EXAMINATION TYPE: XR KUB DATE OF EXAM: 04/06/2021 COMPARISON: 03/23/2021 HISTORY: Kidney stone TECHNIQUE: One view abdominal series FINDINGS: The osseous structures are intact. The bowel gas pattern is nonspecific. Ureteral stent is seen with a 4 mm calcification overlying the region of the left renal pelvis. Calcifications in the pelvis alex ear to lie outside the course of the ureteral stent and likely vascular. Surgical clips in the right upper quadrant. Mild hypertrophic change of the spine. IMPRESSION: 1. Left ureteral stent with proximal ureteral or renal pelvic 4 mm calcification.
[2021-04-06 13:29] VITALS: RESP 16
[2021-04-06] MEDS ORDERED: ONDANSETRON 4 MG/2 ML VIAL ONE (13:32)
[2021-04-06] MEDS ORDERED: SCOPOLAMINE 1.5MG/72HR PATCH TRANSDERM ONE (13:50)
[2021-04-06] MEDS ORDERED: MIDAZOLAM 2 MG/2 ML VIAL IVP ONE (14:35)
[2021-04-06] MEDS ORDERED: PROPOFOL 10 MG/ML 50 ML VIAL IV ONE (16:12)
[2021-04-06] MEDS ORDERED: MIDAZOLAM 2 MG/2 ML VIAL ONE (16:12)
[2021-04-06] MEDS ORDERED: fentaNYL (PF) 50 MCG/ML 2 ML AMP ONE (16:12)
[2021-04-06] MEDS ORDERED: SUCCINYLCHOLINE CHLORIDE 100 MG/5 ML SYR IV ONE (16:12)
[2021-04-06] MEDS ORDERED: GLYCOPYRROLATE 0.2 MG/ML 2 ML VIAL ONE (16:12)
[2021-04-06] MEDS ORDERED: LIDOCAINE 1% INJ 10MG/ML (20 ML MDV) ONE (16:12)
[2021-04-06] MEDS ORDERED: NEOSTIGMINE 1 MG/ML 10 ML VIAL ONE (16:12)
[2021-04-06] MEDS ORDERED: ROCURONIUM 10 MG/ML (5 ML VIAL) IV ONE (16:12)
--- NOTE | 2021-04-06 17:10 | P.OP ---
Date of Procedure: 04/06/21 Preoperative Diagnosis: Left sided ureteral stone Postoperative Diagnosis: Same Procedure(s) Performed: Left sided ureteroscopy, with holmium laser, stone basketing and stent removal Implants: None Anesthesia: SHIVANIA Surgeon: Tristan Joe Estimated Blood Loss (ml): 5 Pathology: other (left ureteral stone) Condition: stable Disposition: PACU Indications for Procedure: This is a 40-year-old female with history of an 8 mm left UPJ stone, she presented with sepsis secondary to her stone on 03/25, she underwent stent placement on March 25. She presents today for definitive stone management. Discussed with her surgical option for her stone. She agreed to proceed with left-sided ureteroscopy with holmium laser, discussed with her the risk which includes but not limited to bleeding, infection, injury to the ureter, potential of needing additional procedures. Discussed also risk from anesthesia. Of note she also has a 5 mm right-sided renal stone, patient was interested in right- sided ureteroscopy if able to perform without dilation, given the poor tolerance to the stent. Discussed if able to pass the ureteroscope atraumatically over wire and we'll address the right-sided stone, if not able to then can proceed with ESWL or observation given its a radiopaque stones. She understood all the risk and agreed to proceed with left-sided ureteroscopy, with holmium laser lithotripsy, stone basketing and stent removal Operative Findings: left sided proximal stone Description of Procedure: Patient was brought to the operating room, general anesthesia was induced. She was prepped and draped in sterile fashion a placement dorsal lithotomy position. The cystoscopy fitted with 21-Lao sheath was inserted per urethra, cystoscopy was performed showed no abnormality within the bladder. Stent was seen protruding from the left ureteral orifice, stent was grasped and removed to the meatus. Next a sensor wire was advanced through the stent the stent was removed with wire in place. Next an 1113 Lao access sheath was passed over the wire under fluoroscopy into the proximal ureter. Next a flexible ureteroscope was inserted through the access sheath, renoscopy was performed showed a large stone within the proximal ureter. Using the holmium laser the stone was fragmented into small fragments, fragments were removed using the stone basket. Repeat ureteroscopy showed no sizable fragments or injury to the kidney, pullback ureteroscopy was performed which showed no injury to the ureter or ureteral stones. At this time the right ureteral orifice was intubated with a sensor wire, attempted to pass the scope over the wire but resistance was met at the ureteral orifice. As per discussion with the patient, given the potential need for a stent if dilation was performed, right-sided ureteroscopy was not performed. The bladder was emptied at end of the case. Patient tolerated the procedure well was taken to PACU in stable condition
[2021-04-06 17:35] VITALS: TEMP 97.9
[2021-04-06] MEDS ORDERED: HYDROmorphone 0.5 MG/0.5 ML SYRINGE IVP ONE ×2 (17:40→17:55)
[2021-04-06] MEDS ORDERED: ONDANSETRON 4 MG/2 ML VIAL IVP ONE (17:52)
[2021-04-06] MEDS ORDERED: HYDROcodone/APAP 5-325MG 1 EACH TAB ONE (18:37)
[2021-04-06] MEDS ORDERED: HYDROcodone/APAP 5-325MG 1 EACH TAB PO ONE (18:38)
[2021-04-06 19:02] VITALS: BP 117/84; PULSE 77
--- NOTE | 2021-04-07 09:11 | FL ---
EXAMINATION TYPE: FL urography retrograde DATE OF EXAM: 04/06/2021 COMPARISON: NONE HISTORY: Fluoroscopy TECHNIQUE: Fluoroscopy. FINDINGS: Fluoroscopic guidance was provided during procedure of 16 seconds. IMPRESSION: As Above.
== END 2021-04-06 19:11 | disposition home or self-care (01) ==
LOC: OR 12:28
PROVIDERS: ATTEND Urology
DX: N20.2 Calculus of kidney with calculus of ureter (principal); I10 Essential (primary) hypertension; G43.909 Migraine, unspecified, not intractable, without status migrainosus; Z87.442 Personal history of urinary calculi; L30.9 Dermatitis, unspecified; L40.9 Psoriasis, unspecified; G93.2 Benign intracranial hypertension; N80.9 Endometriosis, unspecified; Z90.49 Acquired absence of other specified parts of digestive tract; Z98.51 Tubal ligation status; Z98.890 Other specified postprocedural states; Z79.899 Other long term (current) drug therapy; Z88.6 Allergy status to analgesic agent; Z88.5 Allergy status to narcotic agent; Z91.010 Allergy to peanuts
CPT/HCPCS: 81025; 82365; 74420; 74018; 52352; C1769 ×2; J2250; J1100; J2710; J0690; J2405; J2001; J3010; J0330; J2704; J1170

== ENCOUNTER → 2021-05-01 | Outpatient (CLI) | payer BC ==
[2021-05-01 11:37] LABS: WBC 8.8 k/uL (3.8-10.6)
[2021-05-01 11:38] LABS: Basophils # (A) 0.1 k/uL (0-0.2); Basophils % (A) 1 %; Eosinophils # (A) 0.1 k/uL (0-0.7); Eosinophils % (A) 2 %; HCT 40.1 % (34.0-46.0); HGB 12.9 gm/dL (11.4-16.0); Lymphocytes # (A) 2.7 k/uL (1.0-4.8); Lymphocytes % (A) 31 %; MCH 28.7 pg (25.0-35.0); MCV 89.6 fL (80.0-100.0); Mean Platelet Volume 7.4; Monocytes # (A) 0.4 k/uL (0-1.0); Monocytes % (A) 4 %; Neutrophils # (A) 5.4 k/uL (1.3-7.7); Neutrophils % (A) 61 %; Platelet Count 380 k/uL (150-450); RBC 4.48 m/uL (3.80-5.40); RDW 13.7 % (11.5-15.5)
[2021-05-01 11:51] LABS: African American GFR (CKD) >90 (>60 ml/min/1.73 sqM); Anion Gap 8 mmol/L; Blood Urea Nitrogen 9 mg/dL (7-17); Calcium 9.7 mg/dL (8.4-10.2); Carbon Dioxide 28 mmol/L (22-30); Chloride 103 mmol/L (98-107); Glucose 87 mg/dL (74-99); Non-African American GFR(CKD) >90 (>60 ml/min/1.73 sqM); Sodium 139 mmol/L (137-145)
== END | disposition home or self-care (01) ==
LOC: LABPAT 10:57
PROVIDERS: ATTEND Obstetrics & Gynecology
DX: Z01.812 Encounter for preprocedural laboratory examination (principal)
CPT/HCPCS: 36415; 80048; 85025

== ENCOUNTER 2021-05-11 07:41 | Day surgery (SDC) | payer BC ==
[2021-05-05 15:44] VITALS: BMI 38.9
--- NOTE | 2021-05-11 07:12 | P.HPOB ---
History of Present Illness H&P Date: 05/11/21 Chief Complaint: menorrhagia 40 year old with heavy cycles and pelvic pain due to endometriosis presents for total laparoscopic hysterectomy bilateral salpingo-oopherectomy with da day and diagnostic cystoscopy. Review of Systems All systems: negative Constitutional: Denies chills, Denies fever Eyes: denies blurred vision, denies pain Ears, nose, mouth and throat: Denies headache, Denies sore throat Cardiovascular: Denies chest pain, Denies shortness of breath Respiratory: Denies cough Gastrointestinal: Denies abdominal pain, Denies diarrhea, Denies nausea, Denies vomiting Genitourinary: Denies dysuria, Denies hematuria Musculoskeletal: Denies myalgias Integumentary: Denies pruritus, Denies rash Neurological: Denies numbness, Denies weakness Psychiatric: Denies anxiety, Denies depression Endocrine: Denies fatigue, Denies weight change Past Medical History Past Medical History: No Reported History Additional Past Medical History / Comment(s): migraines, hx. of endometriosis for 15 years., Hx. of kidney stones. History of Any Multi-Drug Resistant Organisms: None Reported Past Surgical History: Cholecystectomy, Tubal Ligation Additional Past Surgical History / Comment(s): laparoscopy x2, Lithotripsy April 2021. Past Anesthesia/Blood Transfusion Reactions: Motion Sickness, Postoperative Nausea & Vomiting (PONV) Additional Past Anesthesia/Blood Transfusion Reaction / Comment(s): no hx blood transfusion Smoking Status: Never smoker - Past Family History Mother Family Medical History: No Reported History Medications and Allergies Home Medications Medication Instructions Recorded Confirmed Type Cetirizine HCl [Zyrtec] 10 mg PO HS 05/22/17 05/05/21 History nadoloL [Corgard] 20 mg PO BID 05/22/17 05/05/21 History Cranberry Fruit Extract [Cranberry] 200 mg PO HS 07/01/18 05/05/21 History Multivitamins, Thera [Multivitamin 1 tab PO HS 07/01/18 05/05/21 History (formulary)] Cholecalciferol [Vitamin D3] 1,000 unit PO HS 09/18/18 05/05/21 History Furosemide [Lasix] 30 mg PO DAILY 03/23/21 05/05/21 History Acetaminophen Tab [Tylenol] 650 mg PO Q6H PRN 05/05/21 05/05/21 History Allergies Allergy/AdvReac Type Severity Reaction Status Date / Time NSAIDS (Non-Steroidal Allergy Anaphylaxis Verified 05/05/21 15:25 Anti-Inflamma peanut Allergy Anaphylaxis Verified 05/05/21 15:25 propoxyphene Allergy Rash/Hives Verified 05/05/21 15:25 [From Kb-N] Exam Osteopathic Statement: *. No significant issues noted on an osteopathic structural exam other than those noted in the History and Physical/Consult. Heart: Regular rate and rhythm Lungs: Clear to auscultation bilaterally Abdomen: Soft, nontender Extremities: Negative Homans sign Assessment and Plan (1) Menorrhagia with irregular cycle Status: Acute Code(s): N92.1 - EXCESSIVE AND FREQUENT MENSTRUATION WITH IRREGULAR CYCLE SNOMED Code(s): 803588766 (2) Pelvic pain Status: Acute Code(s): R10.2 - PELVIC AND PERINEAL PAIN SNOMED Code(s): 56643006 Plan: 1. Total laparoscopic hysterectomy with bilateral salpingo-oophorectomy using da Day and diagnostic cystoscopy
[~2021-05-11 07:41] MED LIST changes: -LACTATED RINGERS 1,000 ML IV SCH
[2021-05-11] MEDS: LACTATED RINGERS 1,000 ML IV SCH ×2 (08:27→14:30)
[2021-05-11] MEDS ORDERED: SCOPOLAMINE 1.5MG/72HR PATCH TRANSDERM ONE (08:33)
[2021-05-11] MEDS ORDERED: MIDAZOLAM 2 MG/2 ML VIAL IV ONE (08:48)
[2021-05-11] MEDS ORDERED: fentaNYL (PF) 50 MCG/ML 2 ML AMP IV ONE (08:48)
--- NOTE | 2021-05-11 09:06 | P.ANPRN ---
Procedure Note - Anesthesia - Nerve Block Performed Bilateral Erector Spinae Single Time Out Performed: Yes Date of Procedure: 05/11/21 Procedure Start Time: 08:48 Procedure Stop Time: 09:00 Location of Patient: PreOp Indication: Requested by Surgeon Specifically requested for management of pain by DrRosy: Roula Garzon Sedation Type: Sedate with meaningful contact maintained Preparation: Sterile Prep Position: Prone Needle Types: Pajunk Needle Gauge: 21 Ultrasound used to visualize needle placement: Yes Ultrasound used to observe medication spread: Yes Injectate: 0.5% Ropivacaine (see comment for volume) (15 ml + 0.9% NS 15 ml +dexamethasone 4 mg per side) Blood Aspirated: No Pain Paresthesia on Injection Noted: No Resistance on Injection: Normal Image Stored and Saved: Yes Events: Uneventful and Well Tolerated
[2021-05-11] MEDS ORDERED: PROPOFOL 10 MG/ML 20 ML VIAL IV ONE (09:26)
[2021-05-11] MEDS ORDERED: LIDOCAINE 1% INJ 10MG/ML (20 ML MDV) ONE (09:26)
[2021-05-11] MEDS ORDERED: ROCURONIUM 10 MG/ML (5 ML VIAL) IV ONE (09:26)
[2021-05-11] MEDS ORDERED: SUCCINYLCHOLINE CHLORIDE 100 MG/5 ML SYR IV ONE (09:26)
[2021-05-11] MEDS ORDERED: fentaNYL (PF) 50 MCG/ML 2 ML AMP ONE (09:26)
[2021-05-11] MEDS ORDERED: NEOSTIGMINE 1 MG/ML 10 ML VIAL ONE (09:26)
[2021-05-11] MEDS ORDERED: PHENYLEPHRINE-0.9% NACL SYG 1,000 MCG/10 ML SYRINGE ONE (09:26)
[2021-05-11] MEDS ORDERED: GLYCOPYRROLATE 0.2 MG/ML 2 ML VIAL ONE (09:26)
[2021-05-11] MEDS ORDERED: KETAMINE 10 MG/ML 20 ML VIAL ONE (09:26)
[2021-05-11] MEDS ORDERED: MIDAZOLAM 2 MG/2 ML VIAL ONE (09:26)
[2021-05-11] MEDS ORDERED: BUPIVACAINE (PF) 0.25% 30 ML VIAL SQ ONE ×2 (10:08)
--- NOTE | 2021-05-11 11:00 | P.OP ---
Date of Procedure: 05/11/21 Preoperative Diagnosis: 1. menorrhagia with irregular cycle 2. pelvic pain 3. endometriosis Postoperative Diagnosis: 1. menorrhagia with irregular cycle 2. pelvic pain 3. endometriosis Procedure(s) Performed: Total laparoscopic hysterectomy with bilateral salpingo-oophorectomy using da Vivi and diagnostic cystoscopy Anesthesia: KERI Surgeon: Roula Garzon Streetcar Conductor #1: Beau Martin Estimated Blood Loss (ml): 10 IV fluids (ml): 500 Urine output (ml): 200 Pathology: other (Uterus, cervix, bilateral tubes and ovaries) Condition: stable Disposition: PACU Operative Findings: Normal uterus tubes and ovaries. Some filmy adhesions from the bowel to left pelvic sidewall Description of Procedure: Patient taken the operating room where general anesthesia was obtained without difficulty. She is prepped and draped in normal sterile fashion dorsal lithotomy position, legs placed in the Zackery stirrups. Weighted speculum placed in the vagina and the anterior lip the cervix was grasped with single-tooth tenaculum. The uterus sounded to 8 cm and the cervix diameter was 3 cm. The appropriate manipulator tip and ring were placed on the Enedina manipulator. The Enedina manipulator was then placed in the uterus. Cifuentes catheter was also placed. Attention was then turned to the abdomen and gloves were changed. A 5 mm supraumbilical incision was made the scalpel and a 5 mm optical trocar was placed under direct visualization. 10 cm to the right of this and 2 cm down a 5 mm incision was made and 8 mm da Vivi port was placed under direct visualization. Same measurements on the opposite side of the patient's abdomen, the 5 mm incision was made and 8 mm da Vivi port was placed under direct visualization. In the left upper quadrant a 10 mm incision was made and a 10 mm optical trocar was placed under direct visualization. The 5 mm optical trocar was then replaced with the 8 mm da Vivi camera port. The robot was docked on patient's right side. The camera was introduced and then the monopolar curved scissor and [place] bipolar placed under direct visualization. I broke scrub and went to the physician console. The left infundibulopelvic ligament was cauterized with the [place] bipolar and cut with monopolar curved scissors. The left round ligament was cauterized with the [place] bipolar and cut with monopolar curved scissors. The posterior leaf of the broad ligament was taken down using the monopolar curved scissors. Anterior leaf of the broad ligament was then taken down using the monopolar curved scissors. The uterine artery was cauterized with the [place] bipolar and cut with monopolar curved scissors. The bladder flap was then started using the monopolar curved scissors. Attention was then turned to the right side of the patient's anatomy and the right infundibular pelvic ligament was cauterized with the [place] bipolar and cut with monopolar curved scissors. The right round ligament was cauterized with the [place] bipolar and cut with monopolar curved scissors. Posterior leaf of the broad ligament was taken down using the monopolar curved scissors and the anterior leaf was taken down using the monopolar curved scissors. The uterine artery was cauterized the [place] bipolar cut with monopolar curved scissors. The bladder flap was then finished on this side. Anterior colpotomy was made using the monopolar curved scissors. The rest of the uterus was from the vaginal cuff by following the ring around with the monopolar curved scissors through the uterosacral ligaments back to the anterior portion. Once the uterus and cervix were amputated they were pulled through the vaginal cuff. Hemostasis was assured. The instruments were changed for the Cardier forcep and the echo suture cut. The vaginal cuff was then closed using O stratafix barbed suture in a running fashion. Hemostasis was again assured and the pelvis was irrigated. All instruments were removed from the abdomen and the robot was undocked. I scrubbed back in to perform a cystoscopy. There were jets from both ureteral orifices. The abdominal incisions were closed with 4-0 Vicryl in a subcuticular fashion. Patient tolerated the procedure well, sponge and instrument counts correct 2 and she was taken to recovery room in stable condition condition
[2021-05-11] MEDS ORDERED: IV FLUID CONTINUATION 1,000 ML IV ONE ×2 (11:12)
[2021-05-11] MEDS ORDERED: ONDANSETRON 4 MG/2 ML VIAL ONE (11:27)
[2021-05-11] MEDS ORDERED: ONDANSETRON 4 MG/2 ML VIAL IVP ONE (11:35)
[2021-05-11 11:37] VITALS: RESP 16
[2021-05-11] MEDS ORDERED: diphenhydrAMINE 50 MG/ML 1 ML VIAL ONE (11:44)
[2021-05-11] MEDS ORDERED: HYDROmorphone 0.5 MG/0.5 ML SYRINGE IVP ONE ×4 (11:48→13:32)
[2021-05-11] MEDS ORDERED: diphenhydrAMINE 50 MG/ML 1 ML VIAL IVP ONE (11:57)
[2021-05-11] MEDS ORDERED: METOCLOPRAMIDE 5 MG/ML 2 ML VIAL IVP PRN (12:32)
[2021-05-11] MEDS ORDERED: ZOLPIDEM 5 MG TAB PO PRN (12:32)
[2021-05-11] MEDS: SIMETHICONE 80 MG CHEWABLE PO PRN ×3 (12:55→20:41)
[2021-05-11] MEDS ORDERED: LACTATED RINGERS 1,000 ML IV ONE (13:52)
[2021-05-11] MEDS: HYDROcodone/APAP 7.5-325MG 1 EACH TAB PO PRN ×2 (14:22→20:40)
[2021-05-11] MEDS ORDERED: ACETAMINOPHEN IV (For NPO) 1,000 MG in EMPTY BAG 1 BAG IVPB PRN (15:49)
[2021-05-11] MEDS: SENNOSIDES-DOCUSATE SODIUM 1 EACH TAB PO SCH (20:41)
[2021-05-11] MEDS ORDERED: LORATADINE 10 MG TAB PO SCH (21:00)
[2021-05-11] MEDS ORDERED: CHOLECALCIFEROL 25 MCG (1000 IU) TABLET PO SCH (21:00)
[2021-05-12] MEDS: HYDROcodone/APAP 7.5-325MG 1 EACH TAB PO PRN ×2 (02:13→08:25)
[2021-05-12] MEDS: LACTATED RINGERS 1,000 ML IV SCH (02:14)
[2021-05-12 06:28] LABS: Basophils % (A) 0 %; Eosinophils % (A) 0 %; HCT 36.6 % (34.0-46.0); HGB 11.8 gm/dL (11.4-16.0); Lymphocytes # (A) 1.8 k/uL (1.0-4.8); Lymphocytes % (A) 19 %; MCH 29.3 pg (25.0-35.0); MCHC 32.2 g/dL (31.0-37.0); MCV 90.8 fL (80.0-100.0); Mean Platelet Volume 7.9; Monocytes # (A) 0.4 k/uL (0-1.0); Monocytes % (A) 5 %; Neutrophils # (A) 7.3 k/uL (1.3-7.7); Neutrophils % (A) 76 %; Platelet Count 374 k/uL (150-450); RBC 4.04 m/uL (3.80-5.40); RDW 12.9 % (11.5-15.5); WBC 9.7 k/uL (3.8-10.6)
--- NOTE | 2021-05-12 07:12 | P.DS ---
Providers Expected date of discharge: 05/12/21 Attending physician: Roula Garzon Primary care physician: Juan Wilcox - Discharge Diagnosis(es) (1) Menorrhagia with irregular cycle Current Visit: No Status: Resolved (2) Pelvic pain Current Visit: No Status: Resolved (3) History of robot-assisted laparoscopic hysterectomy Current Visit: Yes Status: Acute Hospital Course: Patient presented for total laparoscopic hysterectomy and bilateral salpingo- oophorectomy with da Vivi and diagnostic cystoscopy. She underwent this procedure without crepitation. Postoperatively her pain was controlled with Preston. She denies nausea, vomiting, chest pain, shortness of breath or any calf pain. Her incisions are clean, dry, intact with lisa. She is ambulating voiding without difficulty and tolerating regular diet, passing flatus. She'll be discharged home post operative day #1 in stable condition to follow-up with me in 3 weeks. Plan - Discharge Summary Discharge Rx Participant: No New Discharge Prescriptions: New HYDROcodone/APAP 7.5-325MG [[place] 7.5-325] 1 each PO Q4H PRN #24 tab PRN Reason: Pain No Action Cetirizine HCl [Zyrtec] 10 mg PO HS nadoloL [Corgard] 20 mg PO BID Multivitamins, Thera [Multivitamin (formulary)] 1 tab PO HS Cranberry Fruit Extract [Cranberry] 200 mg PO HS Cholecalciferol [Vitamin D3] 1,000 unit PO HS Furosemide [Lasix] 30 mg PO DAILY Acetaminophen Tab [Tylenol] 650 mg PO Q6H PRN PRN Reason: Pain Discharge Medication List Cetirizine HCl [Zyrtec] 10 mg PO HS 05/22/17 [History] nadoloL [Corgard] 20 mg PO BID 05/22/17 [History] Cranberry Fruit Extract [Cranberry] 200 mg PO HS 07/01/18 [History] Multivitamins, Thera [Multivitamin (formulary)] 1 tab PO HS 07/01/18 [History] Cholecalciferol [Vitamin D3] 1,000 unit PO HS 09/18/18 [History] Furosemide [Lasix] 30 mg PO DAILY 03/23/21 [History] Acetaminophen Tab [Tylenol] 650 mg PO Q6H PRN 05/05/21 [History] HYDROcodone/APAP 7.5-325MG [[place] 7.5-325] 1 each PO Q4H PRN #24 tab 05/12/21 [Rx] Follow up Appointment(s)/Referral(s): Roula Garzon DO [Doctor of Osteopathic Medicine] - 3 Weeks Discharge Disposition: HOME SELF-CARE
[2021-05-12] MEDS: SENNOSIDES-DOCUSATE SODIUM 1 EACH TAB PO SCH (08:27)
[2021-05-12 08:35] VITALS: BP 103/69; PULSE 63; TEMP 98
[2021-05-12] MEDS ORDERED: FUROSEMIDE 10 MG TAB PO SCH (09:00)
[2021-05-12] MEDS ORDERED: ACETAMINOPHEN TAB 325 MG TAB PO PRN (11:03)
== END 2021-05-12 09:20 | disposition home or self-care (01) ==
LOC: OR 07:41 → 6PED 13:47 → OR 05-12 09:20
PROVIDERS: ATTEND Obstetrics & Gynecology
DX: N92.0 Excessive and frequent menstruation with regular cycle (principal); D25.1 Intramural leiomyoma of uterus; N80.0 Endometriosis of uterus; N94.6 Dysmenorrhea, unspecified; K21.9 Gastro-esophageal reflux disease without esophagitis; G43.909 Migraine, unspecified, not intractable, without status migrainosus
CPT/HCPCS: 58571; S2900; 64999; 81025; 85025; 86850; 86900; 86901; 88307

== ENCOUNTER 2021-06-20 09:54 | Emergency (ER) | payer BC ==
[2021-06-20 09:57] VITALS: TEMP 98.2
[2021-06-20 10:08] LABS: Appearance,Urine Clear (Clear); Bilirubin,Urine Negative (Negative); Blood,Urine Negative (Negative); Color,Urine Colorless; Glucose,Urine (UA) Negative (Negative); Ketones,Urine Negative (Negative); Leukocyte Esterase,Urine Negative (Negative); Nitrite,Urine Negative (Negative); Protein,Urine Negative (Negative); Specific Gravity,Urine 1.003 (1.001-1.035); Urobilinogen,Urine <2.0 mg/dL (<2.0)
[2021-06-20] MEDS ORDERED: ONDANSETRON 4 MG/2 ML VIAL IVP STA (11:33)
[2021-06-20] MEDS ORDERED: SODIUM CHLORIDE 0.9% 1,000 ML IV STA (11:33)
[2021-06-20] MEDS ORDERED: MORPHINE SULFATE 2 MG/ML SYRINGE IVP ONE (11:34)
--- NOTE | 2021-06-20 11:57 | ED ---
Abdominal Pain HPI - General Chief Complaint: Abdominal Pain Stated Complaint: Rt Side/Abdominal Pain Time Seen by Provider: 06/20/21 10:54 Source: patient Mode of arrival: ambulatory Limitations: no limitations - History of Present Illness Initial Comments: Patient is a 41-year-old female presenting to the emergency Department with complaints of right-sided abdominal pain that started yesterday. She feels like it's towards her right flank but does wrap around towards the right front going towards her right groin. She is 5 weeks post op complete hysterectomy with Dr. Garzon. She states she has been recovering very well, only some mild discomfort until yesterday. She states this pain came on gradually, her pain is intermittent 10. Right now it is rated a 7/10. She admits to some lower abdominal cramping associated with this as well. No chest pain or shortness of breath, no fevers but she has been having chills. She does have some mild nausea but no vomiting or diarrhea. Her bowel movements have been regular. She has appointment tomorrow for a recheck after her hysterectomy. Patient has history of kidney stones, had little chip see done in April on the left side, she was told she does have a right-sided kidney stone as well. She has no further complaints at this time. Upon arrival to the ER, her vitals are stable. - Related Data Home Medications Medication Instructions Recorded Confirmed Cetirizine HCl [Zyrtec] 10 mg PO HS 05/22/17 06/20/21 nadoloL [Corgard] 20 mg PO BID 05/22/17 06/20/21 Cranberry Fruit Extract [Cranberry] 200 mg PO HS 07/01/18 06/20/21 Multivitamins, Thera [Multivitamin 1 tab PO HS 07/01/18 06/20/21 (formulary)] Furosemide [Lasix] 30 mg PO DAILY 03/23/21 06/20/21 Cholecalciferol [Vitamin D3 (25 25 mcg PO HS 06/20/21 06/20/21 Mcg = 1000 Iu)] Previous Rx's Medication Instructions Recorded HYDROcodone/APAP 7.5-325MG [[place] 1 tab PO Q6HR PRN 3 Days #12 tab 06/20/21 7.5-325] Ondansetron Odt [Zofran Odt] 4 mg PO Q8HR PRN #10 tab 06/20/21 Allergies Allergy/AdvReac Type Severity Reaction Status Date / Time NSAIDS (Non-Steroidal Allergy Anaphylaxis Verified 06/20/21 12:48 Anti-Inflamma peanut Allergy Anaphylaxis Verified 06/20/21 12:48 propoxyphene Allergy Rash/Hives Verified 06/20/21 12:48 [From Anderson] Review of Systems ROS Statement: Those systems with pertinent positive or pertinent negative responses have been documented in the HPI. ROS Other: All systems not noted in ROS Statement are negative. Past Medical History Past Medical History: No Reported History Additional Past Medical History / Comment(s): Migraines, hx. of endometriosis for 15 years., Hx. of kidney stones. History of Any Multi-Drug Resistant Organisms: None Reported Past Surgical History: Cholecystectomy, Hysterectomy, Tubal Ligation Additional Past Surgical History / Comment(s): laparoscopy x2, Lithotripsy April 2021, hyst w/ bilateral salpingectomy/oophorectomy May 2021. Past Anesthesia/Blood Transfusion Reactions: Motion Sickness, Postoperative Nausea & Vomiting (PONV) Additional Past Anesthesia/Blood Transfusion Reaction / Comment(s): no hx blood transfusion Past Psychological History: No Psychological Hx Reported Smoking Status: Never smoker Past Alcohol Use History: None Reported Past Drug Use History: None Reported - Past Family History Mother Family Medical History: No Reported History General Exam - General Exam Comments Initial Comments: GENERAL: Patient is well-developed and well-nourished. Patient is nontoxic and in mild distress. HEAD: Atraumatic, normocephalic. EYES: Pupils equal round and reactive to light, extraocular movements intact, sclera anicteric, conjunctiva are normal. Eyelids were unremarkable. ENT: Moist mucous membranes. NECK: Normal range of motion, supple without lymphadenopathy or JVD. LUNGS: Unlabored respirations. Breath sounds clear to auscultation bilaterally and equal. No wheezes rales or rhonchi. HEART: Regular rate and rhythm without murmurs, rubs or gallops. ABDOMEN: Soft, tenderness with palpation of the right side of the abdomen, some mild right lower quadrant tenderness and some right flank pain. Incisions look clean and dry from recent hysterectomy. normoactive bowel sounds. No guarding, no rebound. No masses appreciated. : Deferred MUSCULOSKELETAL: Normal extremities with adequate strength and normal range of motion, no pitting or edema. No clubbing or cyanosis. NEUROLOGICAL: Patient is alert and oriented x 3. Motor and sensory are also intact. Cranial nerves II through XII grossly intact. Symmetrical smile. Normal speech, normal gait. PSYCH: Normal mood, normal affect. SKIN: Warm, Dry, normal turgor, no rashes. Patient has laparoscopy incisions on her abdomen, all of which look well healed, no signs of infection. Limitations: no limitations Course Vital Signs 06/20/21 09:55 Temperature 98.2 F Pulse Rate 74 Respiratory 20 Rate Blood Pressure 152/98 O2 Sat by Pulse 98 Oximetry Medical Decision Making - Medical Decision Making Patient is a 41-year-old female here for right-sided flank pain that started yesterday. She is 5 weeks post op complete hysterectomy with Dr. Garzon, has been recovering well. She does have history of kidney stones, had left sided lithotripsy done in April, she was told she has a right-sided stone as well. Vitals are stable, no fevers. Labs show a normal white count, kidney function stable, urine shows no evidence of infection. CT of the abdomen shows a 8 mm stone in the distal right ureter, some mild right-sided hydroureter or hydronephrosis. I did discuss case with Dr. Valencia who is okay with patient being discharged home on pain control, will follow up in their office in the next couple days. Patient is in agreement with this plan of care. I did give her some fluids, pain meds, she is resting comfortably. I will give her a prescription for [place] and Zofran to go home with. Return parameters were discussed with her and she verbalized understanding. - Lab Data Result diagrams: 06/20/21 11:38 06/20/21 11:38 Lab Results 06/20/21 06/20/21 06/20/21 Range/Units 10:03 11:38 11:38 WBC 10.1 (3.8-10.6) k/uL RBC 4.70 (3.80-5.40) m/uL Hgb 13.9 (11.4-16.0) gm/dL Hct 41.5 (34.0-46.0) % MCV 88.2 (80.0-100.0) fL MCH 29.5 (25.0-35.0) pg MCHC 33.5 (31.0-37.0) g/dL RDW 12.8 (11.5-15.5) % Plt Count 383 (150-450) k/uL MPV 7.3 Neutrophils % 67 % Lymphocytes % 25 % Monocytes % 4 % Eosinophils % 2 % Basophils % 0 % Neutrophils # 6.8 (1.3-7.7) k/uL Lymphocytes # 2.5 (1.0-4.8) k/uL Monocytes # 0.4 (0-1.0) k/uL Eosinophils # 0.2 (0-0.7) k/uL Basophils # 0.0 (0-0.2) k/uL Sodium 141 (137-145) mmol/L Potassium 4.1 (3.5-5.1) mmol/L Chloride 103 (98-107) mmol/L Carbon Dioxide 28 (22-30) mmol/L Anion Gap 10 mmol/L BUN 11 (7-17) mg/dL Creatinine 0.62 (0.52-1.04) mg/dL Est GFR (CKD-EPI)AfAm >90 (>60 ml/min/1.73 sqM) Est GFR (CKD-EPI)NonAf >90 (>60 ml/min/1.73 sqM) Glucose 110 H (74-99) mg/dL Plasma Lactic Acid Kael (0.7-2.0) mmol/L Calcium 10.1 (8.4-10.2) mg/dL Total Bilirubin 0.5 (0.2-1.3) mg/dL AST 53 H (14-36) U/L ALT 54 H (4-34) U/L Alkaline Phosphatase 107 (38-126) U/L Total Protein 7.6 (6.3-8.2) g/dL Albumin 4.4 (3.5-5.0) g/dL Amylase 45 (30-110) U/L Lipase 86 (23-300) U/L Urine Color Colorless Urine Appearance Clear (Clear) Urine pH 7.0 (5.0-8.0) Ur Specific Pine 1.003 (1.001-1.035) Urine Protein Negative (Negative) Urine Glucose (UA) Negative (Negative) Urine Ketones Negative (Negative) Urine Blood Negative (Negative) Urine Nitrite Negative (Negative) Urine Bilirubin Negative (Negative) Urine Urobilinogen <2.0 (<2.0) mg/dL Ur Leukocyte Esterase Negative (Negative) 06/20/21 Range/Units 11:38 WBC (3.8-10.6) k/uL RBC (3.80-5.40) m/uL Hgb (11.4-16.0) gm/dL Hct (34.0-46.0) % MCV (80.0-100.0) fL MCH (25.0-35.0) pg MCHC (31.0-37.0) g/dL RDW (11.5-15.5) % Plt Count (150-450) k/uL MPV Neutrophils % % Lymphocytes % % Monocytes % % Eosinophils % % Basophils % % Neutrophils # (1.3-7.7) k/uL Lymphocytes # (1.0-4.8) k/uL Monocytes # (0-1.0) k/uL Eosinophils # (0-0.7) k/uL Basophils # (0-0.2) k/uL Sodium (137-145) mmol/L Potassium (3.5-5.1) mmol/L Chloride (98-107) mmol/L Carbon Dioxide (22-30) mmol/L Anion Gap mmol/L BUN (7-17) mg/dL Creatinine (0.52-1.04) mg/dL Est GFR (CKD-EPI)AfAm (>60 ml/min/1.73 sqM) Est GFR (CKD-EPI)NonAf (>60 ml/min/1.73 sqM) Glucose (74-99) mg/dL Plasma Lactic Acid Kael 0.8 (0.7-2.0) mmol/L Calcium (8.4-10.2) mg/dL Total Bilirubin (0.2-1.3) mg/dL AST (14-36) U/L ALT (4-34) U/L Alkaline Phosphatase (38-126) U/L Total Protein (6.3-8.2) g/dL Albumin (3.5-5.0) g/dL Amylase (30-110) U/L Lipase (23-300) U/L Urine Color Urine Appearance (Clear) Urine pH (5.0-8.0) Ur Specific Pine (1.001-1.035) Urine Protein (Negative) Urine Glucose (UA) (Negative) Urine Ketones (Negative) Urine Blood (Negative) Urine Nitrite (Negative) Urine Bilirubin (Negative) Urine Urobilinogen (<2.0) mg/dL Ur Leukocyte Esterase (Negative) Disposition Clinical Impression: Right distal ureteral calculus Disposition: HOME SELF-CARE Condition: Stable Instructions (If sedation given, give patient instructions): Kidney Stones (ED) Additional Instructions: Please return to the Emergency Department if symptoms worsen or any other concerns. May take Tylenol every 4-6 hours for pain, may take [place] for more severe pain. Take Zofran for any nausea. Please follow up with urology as discussed. Prescriptions: HYDROcodone/APAP 7.5-325MG [[place] 7.5-325] 1 tab PO Q6HR PRN 3 Days #12 tab PRN Reason: Pain Ondansetron Odt [Zofran Odt] 4 mg PO Q8HR PRN #10 tab PRN Reason: Nausea Is patient prescribed a controlled substance at d/c from ED?: Yes When asked, does pt state using other controlled substances?: No If prescribed controlled substance>3 days was MAPS reviewed?: Prescribed <3 Days If opioid is for acute pain is fill amount 7 days or less?: Yes If Rx opioid, was Start Talking consent form obtained?: Yes Referrals: Juan Wilcox MD [Primary Care Provider] - 1-2 days Tristan Joe MD [STAFF PHYSICIAN] - 1-2 days Time of Disposition: 13:14
[2021-06-20 12:00] LABS: Basophils % (A) 0 %; Eosinophils # (A) 0.2 k/uL (0-0.7); Eosinophils % (A) 2 %; HCT 41.5 % (34.0-46.0); HGB 13.9 gm/dL (11.4-16.0); Lymphocytes # (A) 2.5 k/uL (1.0-4.8); Lymphocytes % (A) 25 %; MCH 29.5 pg (25.0-35.0); MCHC 33.5 g/dL (31.0-37.0); MCV 88.2 fL (80.0-100.0); Mean Platelet Volume 7.3; Monocytes # (A) 0.4 k/uL (0-1.0); Monocytes % (A) 4 %; Neutrophils # (A) 6.8 k/uL (1.3-7.7); Neutrophils % (A) 67 %; Platelet Count 383 k/uL (150-450); RDW 12.8 % (11.5-15.5); WBC 10.1 k/uL (3.8-10.6)
[2021-06-20 12:10] LABS: ALT 54 U/L (4-34); AST 53 U/L (14-36); African American GFR (CKD) >90 (>60 ml/min/1.73 sqM); Albumin 4.4 g/dL (3.5-5.0); Alkaline Phosphatase 107 U/L (38-126); Amylase 45 U/L (30-110); Anion Gap 10 mmol/L; Blood Urea Nitrogen 11 mg/dL (7-17); Calcium 10.1 mg/dL (8.4-10.2); Carbon Dioxide 28 mmol/L (22-30); Chloride 103 mmol/L (98-107); Glucose 110 mg/dL (74-99); Lipase 86 U/L (23-300); Non-African American GFR(CKD) >90 (>60 ml/min/1.73 sqM); Potassium 4.1 mmol/L (3.5-5.1); Sodium 141 mmol/L (137-145); Total Bilirubin 0.5 mg/dL (0.2-1.3); Total Protein 7.6 g/dL (6.3-8.2)
--- NOTE | 2021-06-20 12:23 | CT ---
EXAMINATION TYPE: CT abdomen pelvis w con DATE OF EXAM: 06/20/2021 COMPARISON: Prior CT 03/23/2021 HISTORY: Right lower quadrant pain CT DLP: 1626.1 mGycm Automated exposure control for dose reduction was used. TECHNIQUE: Helical acquisition of images from the lung bases through the pelvis have been completed. CONTRAST: Performed without Oral Contrast and with IV Contrast, patient injected with 100 mL of Isovue 300. FINDINGS: LUNG BASES: No significant abnormality is appreciated. AORTA: No significant abnormality is appreciated. LIVER/GB: No significant interval change is appreciated, low attenuation of the liver could be due to hepatic steatosis, gallbladder is absent. PANCREAS: No significant abnormality is seen. SPLEEN: No significant abnormality is seen. ADRENALS: No significant abnormality is seen. KIDNEYS: Distal right ureteral calculus measures approximately 8 mm, there is right-sided hydroureter , hydronephrosis. Punctate nonobstructive calculus is present at the lower pole the right kidney as o n prior REPRODUCTIVE ORGANS: Patient is post hysterectomy. BOWEL: No significant abnormality is seen. The appendix is normal. FREE AIR: No Free Air visible. ASCITES: None visible. PELVIC ADENOPATHY: None visualized. RETROPERITONEAL ADENOPATHY: No Retroperitoneal Adenopathy visible. URINARY BLADDER: No significant abnormality is seen. OSSEOUS STRUCTURES: No significant abnormality is seen. IMPRESSION: OBSTRUCTIVE DISTAL RIGHT URETERAL CALCULUS
[2021-06-20] MEDS ORDERED: HYDROmorphone 0.5 MG/0.5 ML SYRINGE IVP STA (13:10)
[2021-06-20 13:24] VITALS: BP 124/74; PULSE 84; RESP 16
== END 2021-06-20 13:24 | disposition home or self-care (01) ==
LOC: EC 09:54
DX: N20.1 Calculus of ureter (principal); Z88.6 Allergy status to analgesic agent; Z91.010 Allergy to peanuts; Z87.42 Personal history of other diseases of the female genital tract; Z87.442 Personal history of urinary calculi; Z90.49 Acquired absence of other specified parts of digestive tract; Z90.710 Acquired absence of both cervix and uterus; Z98.51 Tubal ligation status
CPT/HCPCS: 99284; 96374; 96375 ×2; 96361; 36415; 80053; 82150; 83605; 83690; 85025; 81003; 74177; J2405; J2270; J1170; Q9967

== ENCOUNTER → 2021-06-26 | Outpatient (CLI) | payer BC ==
--- NOTE | 2021-06-27 08:16 | XR ---
EXAMINATION TYPE: XR KUB DATE OF EXAM: 06/26/2021 COMPARISON: 04/06/2000 HISTORY: Lithotripsy TECHNIQUE: One view abdominal series FINDINGS: The osseous structures are intact. The bowel gas pattern is nonspecific. There are multiple tiny pun ctate calcifications in the pelvis which are nonspecific. Surgical clips in the gallbladder fossa. No definite calcifications overlying the renal outline renal outlines are secured by bowel content. IMPRESSION: 1. Nonspecific abdomen.
== END | disposition home or self-care (01) ==
LOC: RADXRMAIN 16:45
PROVIDERS: ATTEND Urology
DX: Z48.816 Encounter for surgical aftercare following surgery on the genitourinary system (principal)
CPT/HCPCS: 74018

== ENCOUNTER → 2021-07-19 | Outpatient (CLI) | payer BC ==
--- NOTE | 2021-07-21 09:55 | MM ---
Reason for exam: screening (asymptomatic). Last mammogram was performed 5 months ago. History: Patient is postmenopausal and is nulliparous. Family history of breast cancer in aunt at age 60 and breast cancer in paternal grandmother. Took hormonal contraceptives for 15 years. Physical Findings: A clinical breast exam by your physician is recommended on an annual basis and results should be correlated with mammographic findings. MG 3D Screening Mammo W/Cad Bilateral CC and MLO view(s) were taken. Prior study comparison: February 09, 2021, right breast MG 3d diag mammo w/cad RT. July 07, 2020, bilateral MG 3d screening mammo w/cad. There are scattered fibroglandular densities. There is no discrete abnormality. ASSESSMENT: Negative, BI-RAD 1 RECOMMENDATION: Routine screening mammogram of both breasts in 1 year.
== END | disposition home or self-care (01) ==
LOC: RADMAMWWP 15:54
PROVIDERS: ATTEND Obstetrics & Gynecology
DX: Z12.31 Encounter for screening mammogram for malignant neoplasm of breast (principal); Z78.0 Asymptomatic menopausal state; Z80.3 Family history of malignant neoplasm of breast
CPT/HCPCS: 77063; 77067

== ENCOUNTER → 2021-11-09 | Outpatient (CLI) | payer BC | END | disposition home or self-care (01) | LOC: LABWHC1 13:14 | PROVIDERS: ATTEND Otolaryngology | DX: L50.0 Allergic urticaria (principal) | CPT/HCPCS: 36415; 86001; 86003 ==

== ENCOUNTER 2021-12-28 17:10 | Emergency (ER) | payer BC ==
[2021-12-28 18:10] VITALS: TEMP 98.2
[2021-12-28 18:37] LABS: Appearance,Urine Clear (Clear); Bilirubin,Urine Negative (Negative); Blood,Urine Negative (Negative); Color,Urine Colorless; Glucose,Urine (UA) Negative (Negative); Ketones,Urine Negative (Negative); Leukocyte Esterase,Urine Negative (Negative); Nitrite,Urine Negative (Negative); Protein,Urine Negative (Negative); Specific Gravity,Urine 1.007 (1.001-1.035); Urobilinogen,Urine <2.0 mg/dL (<2.0)
[2021-12-28] MEDS ORDERED: SODIUM CHLORIDE 0.9% 1,000 ML IV STA (20:08)
--- NOTE | 2021-12-28 20:27 | ED ---
Abdominal Pain HPI - General Chief Complaint: Abdominal Pain Stated Complaint: Abd pain Time Seen by Provider: 12/28/21 20:08 Source: patient, RN notes reviewed Mode of arrival: ambulatory Limitations: no limitations - History of Present Illness Initial Comments: Patient presents with right lower quadrant abdominal pain which started yesterday. Patient states the pain seems to be intermittent but doesn't quite go away completely. Patient does have a history kidney stones but states this pain is related to movement, bumps, and palpation. Has had a hysterectomy and cholecystectomy. Denies fever or chills. No vomiting. Mild diarrhea. No hematochezia or melena. No headache, no fever or chills, no changes in vision or hearing, no sore throat or difficulty with speech, no neck pain, no chest pain or shortness of breath,no nausea or vomiting, no changes in urination or bowel movements, no numbness or tingling, no extremity pain, no skin rashes or lesions. MD Complaint: abdominal pain - Related Data Home Medications Medication Instructions Recorded Confirmed Cetirizine HCl [Zyrtec] 10 mg PO HS 05/22/17 06/20/21 nadoloL [Corgard] 20 mg PO BID 05/22/17 06/20/21 Cranberry Fruit Extract [Cranberry] 200 mg PO HS 07/01/18 06/20/21 Multivitamins, Thera [Multivitamin 1 tab PO HS 07/01/18 06/20/21 (formulary)] Furosemide [Lasix] 30 mg PO DAILY 03/23/21 06/20/21 Cholecalciferol [Vitamin D3 (25 25 mcg PO HS 06/20/21 06/20/21 Mcg = 1000 Iu)] Previous Rx's Medication Instructions Recorded HYDROcodone/APAP 7.5-325MG [[place] 1 tab PO Q6HR PRN 3 Days #12 tab 06/20/21 7.5-325] Ondansetron Odt [Zofran Odt] 4 mg PO Q8HR PRN #10 tab 06/20/21 Allergies Allergy/AdvReac Type Severity Reaction Status Date / Time NSAIDS (Non-Steroidal Allergy Anaphylaxis Verified 12/28/21 18:07 Anti-Inflamma peanut Allergy Anaphylaxis Verified 12/28/21 18:07 propoxyphene Allergy Rash/Hives Verified 12/28/21 18:07 [From [place]] Review of Systems ROS Statement: Those systems with pertinent positive or pertinent negative responses have been documented in the HPI. ROS Other: All systems not noted in ROS Statement are negative. Past Medical History Past Medical History: No Reported History Additional Past Medical History / Comment(s): Migraines, hx. of endometriosis for 15 years., Hx. of kidney stones. History of Any Multi-Drug Resistant Organisms: None Reported Past Surgical History: Cholecystectomy, Hysterectomy, Tubal Ligation Additional Past Surgical History / Comment(s): laparoscopy x2, Lithotripsy April 2021, hyst w/ bilateral salpingectomy/oophorectomy May 2021. Past Anesthesia/Blood Transfusion Reactions: Motion Sickness, Postoperative Nausea & Vomiting (PONV) Additional Past Anesthesia/Blood Transfusion Reaction / Comment(s): no hx blood transfusion Past Psychological History: No Psychological Hx Reported Smoking Status: Never smoker Past Alcohol Use History: None Reported Past Drug Use History: None Reported - Past Family History Mother Family Medical History: No Reported History General Exam - General Exam Comments Initial Comments: 41-year-old female no acute distress. Vital signs reviewed. Patient does not appear to be ill or toxic. Limitations: no limitations General appearance: alert, in no apparent distress Head exam: Present: atraumatic, normocephalic, normal inspection Eye exam: Present: normal appearance, PERRL, EOMI. Absent: scleral icterus, conjunctival injection, periorbital swelling ENT exam: Present: normal exam, mucous membranes moist Neck exam: Present: normal inspection. Absent: tenderness, meningismus, lymphadenopathy Respiratory exam: Present: normal lung sounds bilaterally. Absent: respiratory distress, wheezes, rales, rhonchi, stridor Cardiovascular Exam: Present: regular rate, normal rhythm, normal heart sounds. Absent: systolic murmur, diastolic murmur, rubs, gallop, clicks GI/Abdominal exam: Present: soft, tenderness (Right lower quadrant), normal bowel sounds. Absent: distended, guarding, rebound, rigid, organomegaly, mass, bruit, pulsatile mass, hernia Extremities exam: Present: normal inspection, full ROM, normal capillary refill. Absent: tenderness, pedal edema, joint swelling, calf tenderness Back exam: Present: normal inspection Neurological exam: Present: alert, oriented X3, CN II-XII intact Psychiatric exam: Present: normal affect, normal mood Skin exam: Present: warm, dry, intact, normal color. Absent: rash Course Vital Signs 12/28/21 12/28/21 18:07 22:53 Temperature 98.2 F Pulse Rate 76 71 Respiratory 20 18 Rate Blood Pressure 139/97 133/79 O2 Sat by Pulse 99 95 Oximetry Medical Decision Making - Medical Decision Making . We'll order a CT abdomen and pelvis with IV contrast to rule out appendicitis. Other differential would include ovarian cyst, enteritis, other intra-abdominal inflammatory versus infectious pathology. Not consistent with cardiopulmonary etiology Does not Appear to be consistent with ureteral stone Patient's computed tomography scan shows no acute findings. This shows clearance of a right renal stone which is seen on a previous study. Study read by radiology. I did review this film myself. I did discuss the possibility of missed diagnosis with the patient to include earlier missed appendicitis. We discussed being rechecked within the next 24 hours. Return if all parameters discussed in detail. All findings discussed. All questions answered. Patient was told to return to the ER for any signs or symptoms worsen. Told to return immediately if any other problems arise. All questions answered. Treatment plan discussed. Patient in agreement Every effort has been made to ensure accuracy of this dictation. However, due to the limitations of electronic medical records and dictation devices, errors in charting still occur. - Lab Data Result diagrams: 12/28/21 20:51 12/28/21 20:51 Lab Results 12/28/21 12/28/21 12/28/21 Range/Units 18:15 20:51 20:51 WBC 12.6 H (3.8-10.6) k/uL RBC 5.03 (3.80-5.40) m/uL Hgb 14.6 (11.4-16.0) gm/dL Hct 45.3 (34.0-46.0) % MCV 90.1 (80.0-100.0) fL MCH 29.1 (25.0-35.0) pg MCHC 32.3 (31.0-37.0) g/dL RDW 13.1 (11.5-15.5) % Plt Count 406 (150-450) k/uL MPV 7.0 Neutrophils % 60 % Lymphocytes % 31 % Monocytes % 5 % Eosinophils % 3 % Basophils % 0 % Neutrophils # 7.6 (1.3-7.7) k/uL Lymphocytes # 3.9 (1.0-4.8) k/uL Monocytes # 0.6 (0-1.0) k/uL Eosinophils # 0.3 (0-0.7) k/uL Basophils # 0.1 (0-0.2) k/uL Sodium 136 L (137-145) mmol/L Potassium 4.2 (3.5-5.1) mmol/L Chloride 99 (98-107) mmol/L Carbon Dioxide 28 (22-30) mmol/L Anion Gap 9 mmol/L BUN 15 (7-17) mg/dL Creatinine 0.70 (0.52-1.04) mg/dL Est GFR (CKD-EPI)AfAm >90 (>60 ml/min/1.73 sqM) Est GFR (CKD-EPI)NonAf >90 (>60 ml/min/1.73 sqM) Glucose 89 (74-99) mg/dL Calcium 9.9 (8.4-10.2) mg/dL Total Bilirubin 0.7 (0.2-1.3) mg/dL AST 27 (14-36) U/L ALT 29 (4-34) U/L Alkaline Phosphatase 128 H (38-126) U/L Total Protein 8.3 H (6.3-8.2) g/dL Albumin 4.7 (3.5-5.0) g/dL Lipase 107 (23-300) U/L Urine Color Colorless Urine Appearance Clear (Clear) Urine pH 6.0 (5.0-8.0) Ur Specific [place] 1.007 (1.001-1.035) Urine Protein Negative (Negative) Urine Glucose (UA) Negative (Negative) Urine Ketones Negative (Negative) Urine Blood Negative (Negative) Urine Nitrite Negative (Negative) Urine Bilirubin Negative (Negative) Urine Urobilinogen <2.0 (<2.0) mg/dL Ur Leukocyte Esterase Negative (Negative) Disposition Clinical Impression: Acute diarrhea, Right lower quadrant abdominal pain Disposition: HOME SELF-CARE Instructions (If sedation given, give patient instructions): Acute Diarrhea (ED), Abdominal Pain (ED) Additional Instructions: Follow-up with your regular physician as directed. Return to the ER immediately if any symptoms worsen, new symptoms arise, or any other problems develop. Increase clear liquids. Return immediately if pain increases, fever develops, or any other symptoms worsen. If pain is still present tomorrow, return for reevaluation to the ER. Is patient prescribed a controlled substance at d/c from ED?: No Referrals: Juan Wilcox MD [Primary Care Provider] - 1-2 days Time of Disposition: 23:18
[2021-12-28 21:03] LABS: Basophils # (A) 0.1 k/uL (0-0.2); Basophils % (A) 0 %; Eosinophils # (A) 0.3 k/uL (0-0.7); Eosinophils % (A) 3 %; HCT 45.3 % (34.0-46.0); HGB 14.6 gm/dL (11.4-16.0); Lymphocytes # (A) 3.9 k/uL (1.0-4.8); Lymphocytes % (A) 31 %; MCH 29.1 pg (25.0-35.0); MCHC 32.3 g/dL (31.0-37.0); MCV 90.1 fL (80.0-100.0); Monocytes # (A) 0.6 k/uL (0-1.0); Monocytes % (A) 5 %; Neutrophils # (A) 7.6 k/uL (1.3-7.7); Neutrophils % (A) 60 %; Platelet Count 406 k/uL (150-450); RBC 5.03 m/uL (3.80-5.40); RDW 13.1 % (11.5-15.5); WBC 12.6 k/uL (3.8-10.6)
[2021-12-28 21:21] LABS: ALT 29 U/L (4-34); AST 27 U/L (14-36); African American GFR (CKD) >90 (>60 ml/min/1.73 sqM); Albumin 4.7 g/dL (3.5-5.0); Alkaline Phosphatase 128 U/L (38-126); Anion Gap 9 mmol/L; Blood Urea Nitrogen 15 mg/dL (7-17); Calcium 9.9 mg/dL (8.4-10.2); Carbon Dioxide 28 mmol/L (22-30); Chloride 99 mmol/L (98-107); Glucose 89 mg/dL (74-99); Lipase 107 U/L (23-300); Non-African American GFR(CKD) >90 (>60 ml/min/1.73 sqM); Potassium 4.2 mmol/L (3.5-5.1); Sodium 136 mmol/L (137-145); Total Bilirubin 0.7 mg/dL (0.2-1.3); Total Protein 8.3 g/dL (6.3-8.2)
--- NOTE | 2021-12-28 21:24 | XR ---
EXAMINATION TYPE: XR KUB x 2 DATE OF EXAM: 12/28/2021 8:15 PM CLINICAL HISTORY: right pain TECHNIQUE: Two Upright KUB images of the abdomen are obtained. COMPARISON: None. FINDINGS: Scattered gas is seen in non-distended small bowel loops. Gas and fecal material is seen in non-distended colon. There is no visceromegaly, pneumoperitoneum, or abnormal calcification apprecia pauline. The lung bases are clear and the osseous structures are intact. IMPRESSION: No acute radiographic process.
--- NOTE | 2021-12-28 22:29 | CT ---
EXAMINATION TYPE: CT abdomen pelvis w con DATE OF EXAM: 12/28/2021 COMPARISON: 06/20/2021 HISTORY: Abd pain, RLQ x 2days CT DLP: 1622.3 mGycm Automated exposure control for dose reduction was used. CONTRAST: Performed with IV Contrast, patient injected with 100ml mL of Isovue 300. Images obtained from the diaphragm to the floor the pelvis with IV contrast. Lung bases are clear. There is no pleural effusion. Heart size is normal. There is no pericardial eff usion. Liver spleen stomach pancreas appear intact. The bile ducts are not dilated. There are clips f rom cholecystectomy. There is no adrenal mass. Kidneys show satisfactory contrast opacification. There is no hydronephrosi s. Delayed images show normal renal excretion. There is no retroperitoneal adenopathy. Ureters are no t dilated. Appendix is posterior and appears normal. The bladder distends smoothly. There is no inguinal hernia. No pelvic mass. No free fluid in the pelv is. There is no mesenteric edema. There is no ascites or free air. No evidence of a bowel obstruction . The lumbar vertebrae have normal alignment. Posterior elements are intact. There is no compression fr acture. IMPRESSION: Negative CT scan abdomen and pelvis. Normal appendix. There is clearing of the right side renal obstr uction compared to old exam.
[2021-12-28 22:54] VITALS: RESP 18
[2021-12-28] MEDS ORDERED: FAMOTIDINE 20 MG/2 ML VIAL IV STA (23:23)
[2021-12-28] MEDS ORDERED: methylPREDNISolone SOD SUCCI 125 MG/2 ML VIAL IV STA (23:23)
[2021-12-29 00:41] VITALS: BP 154/79; PULSE 78
== END 2021-12-29 00:42 | disposition home or self-care (01) ==
LOC: EC 17:10
DX: R10.31 Right lower quadrant pain (principal); R19.7 Diarrhea, unspecified
CPT/HCPCS: 80053; 83690; 85025; 81003; 74018; 74177; 99284; 96360; Q9967

== ENCOUNTER 2022-01-08 14:07 | Emergency (ER) | payer BC ==
[2022-01-08 14:43] VITALS: RESP 18
[2022-01-08 15:05] LABS: Appearance,Urine Clear (Clear); Bilirubin,Urine Negative (Negative); Blood,Urine Negative (Negative); Color,Urine Light Yellow; Glucose,Urine (UA) Negative (Negative); Ketones,Urine Negative (Negative); Leukocyte Esterase,Urine Negative (Negative); Nitrite,Urine Negative (Negative); Protein,Urine Negative (Negative); Specific Gravity,Urine 1.004 (1.001-1.035); Urobilinogen,Urine <2.0 mg/dL (<2.0)
[2022-01-08] MEDS ORDERED: SODIUM CHLORIDE 0.9% 2,000 ML IV STA (15:16)
[2022-01-08] MEDS ORDERED: ONDANSETRON 4 MG/2 ML VIAL IVP STA (15:17)
[2022-01-08 15:41] LABS: ALT 84 U/L (4-34); AST 87 U/L (14-36); African American GFR (CKD) >90 (>60 ml/min/1.73 sqM); Albumin 4.2 g/dL (3.5-5.0); Alkaline Phosphatase 109 U/L (38-126); Anion Gap 8 mmol/L; Blood Urea Nitrogen 10 mg/dL (7-17); Calcium 9.6 mg/dL (8.4-10.2); Carbon Dioxide 27 mmol/L (22-30); Chloride 103 mmol/L (98-107); Glucose 90 mg/dL (74-99); Lipase 144 U/L (23-300); Magnesium 1.8 mg/dL (1.6-2.3); Non-African American GFR(CKD) >90 (>60 ml/min/1.73 sqM); Potassium 3.8 mmol/L (3.5-5.1); Sodium 138 mmol/L (137-145); Total Bilirubin 0.8 mg/dL (0.2-1.3); Total Protein 7.6 g/dL (6.3-8.2)
[2022-01-08 15:42] LABS: Basophils % (A) 0 %; Eosinophils # (A) 0.1 k/uL (0-0.7); Eosinophils % (A) 1 %; HCT 42.2 % (34.0-46.0); HGB 14.1 gm/dL (11.4-16.0); Lymphocytes # (A) 2.8 k/uL (1.0-4.8); Lymphocytes % (A) 28 %; MCH 29.8 pg (25.0-35.0); MCHC 33.4 g/dL (31.0-37.0); MCV 89.3 fL (80.0-100.0); Mean Platelet Volume 7.1; Monocytes # (A) 0.5 k/uL (0-1.0); Monocytes % (A) 5 %; Neutrophils # (A) 6.2 k/uL (1.3-7.7); Neutrophils % (A) 63 %; Platelet Count 382 k/uL (150-450); RBC 4.72 m/uL (3.80-5.40); RDW 13.7 % (11.5-15.5); WBC 9.8 k/uL (3.8-10.6)
--- NOTE | 2022-01-08 16:28 | ED ---
Abdominal Pain HPI - General Chief Complaint: Abdominal Pain Stated Complaint: Abdominal Pain, Nausea, Diarrhea Time Seen by Provider: 01/08/22 14:58 Source: patient Mode of arrival: ambulatory Limitations: no limitations - History of Present Illness Initial Comments: Patient is a 41-year-old female who presents to the emergency department with a chief complaint of intermittent right-sided abdominal pain with nausea, vomiting, diarrhea 2 weeks. Patient was evaluated here in the emergency department on 12/28/21 with similar symptoms. At this time CT of the abdomen and pelvis with contrast was negative for acute process including appendicitis. Pat ient states that the pain is worse in the right lower quadrant. Patient has not had an episode of nausea and vomiting since Saturday but states she has 3-4 episodes of diarrhea a day, nonbloody. Patient denies fever, chills, recent antibiotic use, and recent sick contacts. Patient has a history of cholecystectomy and hysterectomy. She has no other concerns at this time including headache, shortness of breath, chest pain, and burning with urination. - Related Data Home Medications Medication Instructions Recorded Confirmed Cetirizine HCl [Zyrtec] 10 mg PO HS 05/22/17 01/08/22 nadoloL [Corgard] 20 mg PO BID 05/22/17 01/08/22 Cranberry Fruit Extract [Cranberry] 200 mg PO HS 07/01/18 01/08/22 Multivitamins, Thera [Multivitamin 1 tab PO HS 07/01/18 01/08/22 (formulary)] Furosemide [Lasix] 30 mg PO DAILY 03/23/21 01/08/22 Cholecalciferol [Vitamin D3 (25 25 mcg PO HS 06/20/21 01/08/22 Mcg = 1000 Iu)] ALPRAZolam [Xanax] 0.125 - 0.25 mg PO BID PRN 01/08/22 01/08/22 Elderberry Fruit and Flower [Black 1 cap PO HS 01/08/22 01/08/22 Elderberry 575 mg Cap] Sertraline [Zoloft] 25 mg PO DAILY 01/08/22 01/08/22 traZODone HCL 75 mg PO HS 01/08/22 01/08/22 Previous Rx's Medication Instructions Recorded Dicyclomine [Bentyl] 20 mg PO TID PRN #15 tablet 01/08/22 Ondansetron Odt [Zofran Odt] 4 mg PO Q8HR PRN #15 tab 01/08/22 Allergies Allergy/AdvReac Type Severity Reaction Status Date / Time NSAIDS (Non-Steroidal Allergy Anaphylaxis Verified 01/08/22 16:42 Anti-Inflamma peanut Allergy Anaphylaxis Verified 01/08/22 16:42 propoxyphene Allergy Rash/Hives Verified 01/08/22 16:42 [From [place]] Review of Systems ROS Statement: Those systems with pertinent positive or pertinent negative responses have been documented in the HPI. ROS Other: All systems not noted in ROS Statement are negative. Past Medical History Past Medical History: No Reported History Additional Past Medical History / Comment(s): Migraines, hx. of endometriosis for 15 years., Hx. of kidney stones. History of Any Multi-Drug Resistant Organisms: None Reported Past Surgical History: Cholecystectomy, Hysterectomy, Tubal Ligation Additional Past Surgical History / Comment(s): laparoscopy x2, Lithotripsy April 2021, hyst w/ bilateral salpingectomy/oophorectomy May 2021. Past Anesthesia/Blood Transfusion Reactions: Motion Sickness, Postoperative Nausea & Vomiting (PONV) Additional Past Anesthesia/Blood Transfusion Reaction / Comment(s): no hx blood transfusion Past Psychological History: No Psychological Hx Reported Smoking Status: Never smoker Past Alcohol Use History: None Reported Past Drug Use History: None Reported - Past Family History Mother Family Medical History: No Reported History General Exam Limitations: no limitations General appearance: alert, in no apparent distress Head exam: Present: atraumatic, normocephalic, normal inspection Eye exam: Present: normal appearance, PERRL, EOMI. Absent: scleral icterus, conjunctival injection, periorbital swelling Neck exam: Present: normal inspection, full ROM Respiratory exam: Present: normal lung sounds bilaterally. Absent: respiratory distress, wheezes, rales, rhonchi, stridor Cardiovascular Exam: Present: regular rate, normal rhythm, normal heart sounds. Absent: systolic murmur, diastolic murmur, rubs, gallop, clicks GI/Abdominal exam: Present: soft, normal bowel sounds. Absent: distended, tenderness, guarding, rebound, rigid Neurological exam: Present: alert, oriented X3, CN II-XII intact Psychiatric exam: Present: normal affect, normal mood Skin exam: Present: warm, dry, intact, normal color. Absent: rash Course Vital Signs 01/08/22 14:39 Temperature 98.1 F Pulse Rate 67 Respiratory 18 Rate Blood Pressure 130/85 O2 Sat by Pulse 97 Oximetry Medical Decision Making - Medical Decision Making This is a 41-year-old female who presents with intermittent abdominal pain, nausea, vomiting, and diarrhea x 2 weeks. Thorough history and examination were performed. Patient is afebrile. The abdomen is soft and nontender. Patient has a normal white count at 9.8, improved since her last visit on 12/28/21 at 12.6. Other laboratory studies are relatively unremarkable. Urinalysis does not indicate infection or blood. Patient had a negative abdominal CT and 12/28/21. Based on this as well as patient presentation, physical exam, and laboratory studies, additional imaging is necessary at this time. Patient informed that it is possible that she may have adhesions from previous surgery. She is instructed to follow-up with her primary care who may give her a surgery referral. I will discharge her with Bentyl and Zofran. Return parameters discussed. Patient verbalizes understanding and is agreeable to plan. Dr. Estrada is my attending. - Lab Data Result diagrams: 01/08/22 15:26 01/08/22 15:26 Lab Results 01/08/22 01/08/22 01/08/22 Range/Units 14:55 15:26 15:26 WBC 9.8 (3.8-10.6) k/uL RBC 4.72 (3.80-5.40) m/uL Hgb 14.1 (11.4-16.0) gm/dL Hct 42.2 (34.0-46.0) % MCV 89.3 (80.0-100.0) fL MCH 29.8 (25.0-35.0) pg MCHC 33.4 (31.0-37.0) g/dL RDW 13.7 (11.5-15.5) % Plt Count 382 (150-450) k/uL MPV 7.1 Neutrophils % 63 % Lymphocytes % 28 % Monocytes % 5 % Eosinophils % 1 % Basophils % 0 % Neutrophils # 6.2 (1.3-7.7) k/uL Lymphocytes # 2.8 (1.0-4.8) k/uL Monocytes # 0.5 (0-1.0) k/uL Eosinophils # 0.1 (0-0.7) k/uL Basophils # 0.0 (0-0.2) k/uL Sodium 138 (137-145) mmol/L Potassium 3.8 (3.5-5.1) mmol/L Chloride 103 (98-107) mmol/L Carbon Dioxide 27 (22-30) mmol/L Anion Gap 8 mmol/L BUN 10 (7-17) mg/dL Creatinine 0.66 (0.52-1.04) mg/dL Est GFR (CKD-EPI)AfAm >90 (>60 ml/min/1.73 sqM) Est GFR (CKD-EPI)NonAf >90 (>60 ml/min/1.73 sqM) Glucose 90 (74-99) mg/dL Calcium 9.6 (8.4-10.2) mg/dL Magnesium 1.8 (1.6-2.3) mg/dL Total Bilirubin 0.8 (0.2-1.3) mg/dL AST 87 H (14-36) U/L ALT 84 H (4-34) U/L Alkaline Phosphatase 109 (38-126) U/L Total Protein 7.6 (6.3-8.2) g/dL Albumin 4.2 (3.5-5.0) g/dL Lipase 144 (23-300) U/L Urine Color Light Yellow Urine Appearance Clear (Clear) Urine pH 5.0 (5.0-8.0) Ur Specific [place] 1.004 (1.001-1.035) Urine Protein Negative (Negative) Urine Glucose (UA) Negative (Negative) Urine Ketones Negative (Negative) Urine Blood Negative (Negative) Urine Nitrite Negative (Negative) Urine Bilirubin Negative (Negative) Urine Urobilinogen <2.0 (<2.0) mg/dL Ur Leukocyte Esterase Negative (Negative) Disposition Clinical Impression: Abdominal pain, Nausea & vomiting, Diarrhea Disposition: HOME SELF-CARE Condition: Good Instructions (If sedation given, give patient instructions): Abdominal Pain (ED) Additional Instructions: Please take Zofran and Bentyl as directed. Follow-up with your primary care provider who may refer you to a surgical consult. Return to the emergency department if you experience new, concerning, or worsening symptoms. Prescriptions: Dicyclomine [Bentyl] 20 mg PO TID PRN #15 tablet PRN Reason: Pain Ondansetron Odt [Zofran Odt] 4 mg PO Q8HR PRN #15 tab PRN Reason: Nausea Is patient prescribed a controlled substance at d/c from ED?: No Referrals: Juan Wilcox MD [Primary Care Provider] - 1-2 days Time of Disposition: 16:27
[2022-01-08 18:03] VITALS: BP 118/69; PULSE 64; TEMP 97.5
== END 2022-01-08 18:06 | disposition home or self-care (01) ==
LOC: EC 14:07
DX: R10.31 Right lower quadrant pain (principal); R11.2 Nausea with vomiting, unspecified; R19.7 Diarrhea, unspecified
CPT/HCPCS: 36415; 80053; 83690; 83735; 85025; 81003; 99284; 96374; 96361 ×3; J2405

== ENCOUNTER → 2022-07-27 | Outpatient (CLI) | payer BC ==
--- NOTE | 2022-07-30 08:31 | MM ---
Reason for Exam: Screening (asymptomatic). Last screening mammogram was performed 12 month(s) ago. Patient History: Menarche at age 12. Patient has no children. Left ovary removed at age 40. Right ovary removed at age 40. Hysterectomy at age 40. Postmenopausal. Patient used Hormonal Contraceptives for 15 years. Paternal grandmother had breast cancer. Maternal aunt had breast cancer, age 60. Risk Values: Tiffany 5 year model risk: 0.7%. NCI Lifetime model risk: 10.9%. Prior Study Comparison: 07/07/2020 Bilateral Screening Mammogram, [facility]. 02/09/2021 Right Diagnostic Mammogram, [facility]. 07/19/2021 Bilateral Screening Mammogram, [facility]. Tissue Density: There are scattered fibroglandular densities. Findings: Analyzed By CAD. There is no suspicious group of microcalcifications or new suspicious mass in either breast. Overall Assessment: Negative, BI-RAD 1 Management: Screening Mammogram of both breasts in 1 year. A clinical breast exam by your physician is recommended on an annual basis and results should be correlated with mammographic findings. Electronically signed and approved by: Lance Key M.D. Radiologis
== END | disposition home or self-care (01) ==
LOC: RADMAMWWP 15:52
PROVIDERS: ATTEND Family Medicine
DX: Z12.31 Encounter for screening mammogram for malignant neoplasm of breast (principal)
CPT/HCPCS: 77063; 77067

== ENCOUNTER → 2023-08-02 | Outpatient (CLI) | payer BC ==
--- NOTE | 2023-08-05 07:28 | MM ---
Reason for Exam: Screening (asymptomatic). Last screening mammogram was performed 12 month(s) ago. Patient History: Menarche at age 12. Patient has no children. Left ovary removed at age 40. Right ovary removed at age 40. Hysterectomy at age 40. Postmenopausal. Patient used Hormonal Contraceptives for 15 years. Paternal grandmother had breast cancer, age 50. Maternal aunt had breast cancer, age 60. Paternal aunt had breast cancer, age 63. Risk Values: Tiffany 5 year model risk: 0.8%. NCI Lifetime model risk: 10.8%. Prior Study Comparison: 02/09/2021 Right Diagnostic Mammogram, [facility]. 07/19/2021 Bilateral Screening Mammogram, [facility]. 07/27/2022 Bilateral MG 3D screening mammo w/cad, [facility]. Tissue Density: The breast tissue is almost entirely fat. Findings: Analyzed By CAD. There is no suspicious group of microcalcifications or new suspicious mass. Overall Assessment: Negative, BI-RAD 1 Management: Screening Mammogram of both breasts in [address] [facility] will attempt to contact patient to return for supplemental views and ultrasound if indicated. Patient should continue monthly self-breast exams. A clinical breast exam by your physician is recommended on an annual basis. This exam should not preclude additional follow-up of suspicious palpable abnormalities. Note on Tiffany scores and lifetime risk: 1. A Tiffany score greater than 3% is considered moderate risk. If this is the case, consider specialist referral to assess eligibility for a risk reducing agent. 2. If overall lifetime risk for the development of breast cancer is 20% or higher, the patient may qualify for future screening with alternating mammogram and breast MRI. Electronically signed and approved by: Carson Kerr DO
== END | disposition home or self-care (01) ==
LOC: RADMAMWWP 16:55
PROVIDERS: ATTEND Family Medicine
DX: Z12.31 Encounter for screening mammogram for malignant neoplasm of breast (principal); Z78.0 Asymptomatic menopausal state; Z80.3 Family history of malignant neoplasm of breast
CPT/HCPCS: 77063; 77067

== ENCOUNTER 2024-02-26 06:01 | Emergency (ER) | payer BC ==
[2024-02-26 06:11] VITALS: TEMP 98.7
[2024-02-26] MEDS: ONDANSETRON 4 MG/2 ML VIAL IVP STA (06:23)
[2024-02-26] MEDS: SODIUM CHLORIDE 0.9% 1,000 ML IV STA (06:24)
--- NOTE | 2024-02-26 06:30 | ED ---
Syncope HPI - General Chief Complaint: Recheck/Abnormal Lab/Rx Stated Complaint: Syncope Time Seen by Provider: 02/26/24 06:09 Source: patient, RN notes reviewed Mode of arrival: ambulatory Limitations: no limitations - History of Present Illness Initial Comments: This is a 43-year-old female who presents to the emergency department for a syncopal episode. Patient states that she was at work yesterday when she started to feel nauseous. She went into the bathroom and subsequently had a syncopal episode. Denies hitting her head. She was told that she was only unconscious for a couple of seconds. This has happened to her in the past. She followed up with her primary care provider after the incident yesterday and had blood work done, but does not currently have those results. They also discussed an EEG and MRI order to rule out seizure activity. She did feel dizzy yesterday during the event, however that has since resolved. States that she continues to feel nauseous and also has pain over the right side and right mid back. This pain has been there for about 2 weeks and she has not yet had it evaluated. Denies any chest pain or shortness of breath prior to the event or currently. She does report a cough, which she states is a result of her recovering from bronchitis that she was previously diagnosed with. MD Complaint: loss of consciousness - Related Data Home Medications Medication Instructions Recorded Confirmed Cetirizine HCl [Zyrtec] 10 mg PO HS 05/22/17 01/08/22 nadoloL [Corgard] 20 mg PO BID 05/22/17 01/08/22 Cranberry Fruit Extract [Cranberry] 200 mg PO HS 07/01/18 01/08/22 Multivitamins, Thera [Multivitamin 1 tab PO HS 07/01/18 01/08/22 (formulary)] Furosemide [Lasix] 30 mg PO DAILY 03/23/21 01/08/22 Cholecalciferol [Vitamin D3 (25 25 mcg PO HS 06/20/21 01/08/22 Mcg = 1000 Iu)] ALPRAZolam [Xanax] 0.125 - 0.25 mg PO BID PRN 01/08/22 01/08/22 Elderberry Fruit and Flower [Black 1 cap PO HS 01/08/22 01/08/22 Elderberry 575 mg Cap] Sertraline [Zoloft] 25 mg PO DAILY 01/08/22 01/08/22 traZODone HCL 75 mg PO HS 01/08/22 01/08/22 Previous Rx's Medication Instructions Recorded Dicyclomine [Bentyl] 20 mg PO TID PRN #15 tablet 01/08/22 Ondansetron Odt [Zofran Odt] 4 mg PO Q8HR PRN #15 tab 01/08/22 Ondansetron Odt [Zofran Odt] 4 mg PO Q8HR PRN #15 tab 02/26/24 Allergies Allergy/AdvReac Type Severity Reaction Status Date / Time NSAIDS (Non-Steroidal Allergy Anaphylaxis Verified 02/26/24 06:04 Anti-Inflamma peanut Allergy Anaphylaxis Verified 02/26/24 06:04 propoxyphene Allergy Rash/Hives Verified 02/26/24 06:04 [From [facility]] Review of Systems ROS Statement: Those systems with pertinent positive or pertinent negative responses have been documented in the HPI. ROS Other: All systems not noted in ROS Statement are negative. Past Medical History Past Medical History: No Reported History Additional Past Medical History / Comment(s): Migraines, hx. of endometriosis for 15 years., Hx. of kidney stones. History of Any Multi-Drug Resistant Organisms: None Reported Past Surgical History: Cholecystectomy, Hysterectomy, Tubal Ligation Additional Past Surgical History / Comment(s): laparoscopy x2, Lithotripsy April 2021, hyst w/ bilateral salpingectomy/oophorectomy May 2021. Past Anesthesia/Blood Transfusion Reactions: Motion Sickness, Postoperative Nausea & Vomiting (PONV) Additional Past Anesthesia/Blood Transfusion Reaction / Comment(s): no hx blood transfusion Past Psychological History: No Psychological Hx Reported Smoking Status: Never smoker Past Alcohol Use History: None Reported Past Drug Use History: None Reported - Past Family History Mother Family Medical History: No Reported History General Exam Limitations: no limitations General appearance: alert, in no apparent distress Head exam: Present: atraumatic, normocephalic, normal inspection Eye exam: Present: normal appearance, PERRL, EOMI. Absent: scleral icterus, conjunctival injection, periorbital swelling Respiratory exam: Present: normal lung sounds bilaterally. Absent: respiratory distress, wheezes, rales, rhonchi, stridor Cardiovascular Exam: Present: regular rate, normal rhythm, normal heart sounds. Absent: systolic murmur, diastolic murmur, rubs, gallop, clicks GI/Abdominal exam: Present: soft, tenderness (RUQ and right side). Absent: distended Back exam: Present: CVA tenderness (R) Neurological exam: Present: alert, oriented X3, CN II-XII intact Psychiatric exam: Present: normal affect, normal mood Skin exam: Present: warm, dry, intact, normal color. Absent: rash Course Vital Signs 02/26/24 02/26/24 02/26/24 06:04 07:02 07:04 Temperature 98.7 F Pulse Rate 71 Pulse Rate [ 71 Sitting] Pulse Rate [ Standing] Pulse Rate [ 72 Supine] Respiratory 16 Rate Blood Pressure 147/93 Blood Pressure 141/91 [Sitting] Blood Pressure [Standing] Blood Pressure 140/90 [Supine] O2 Sat by Pulse 98 98 97 Oximetry 02/26/24 02/26/24 07:06 09:31 Temperature 98.7 F Pulse Rate 72 Pulse Rate [ Sitting] Pulse Rate [ 70 Standing] Pulse Rate [ Supine] Respiratory 18 Rate Blood Pressure 131/89 Blood Pressure [Sitting] Blood Pressure 139/96 [Standing] Blood Pressure [Supine] O2 Sat by Pulse 97 98 Oximetry Medical Decision Making - Medical Decision Making This is a 43 year old female who presents to the emergency department for a syncopal episode and nausea. Was pt. sent in by a medical professional or institution? @ -No Did you speak to anyone other than the patient for history? @ -No Did you review nursing and triage notes? @ -I disagree with the aspect of wheezing, she reports a mild cough as a result of bronchitis diagnosed previously. Were old charts reviewed? @ -No Differential Diagnosis? @ -Differential Syncope: Valvular disease, hypertrophic cardiomyopathy, pulmonary embolism, tamponade, tachycardia, bradycardia, AR, hypovolemia, hemorrhage, dissection, anemia, intracranial hemorrhage, seizure, hypoglycemia, carbon monoxide poisoning, this is not meant to be an all-inclusive list. EKG interpreted by me (3pts min.)? @ -EKG interpreted by me demonstrating the following: Sinus rhythm. Ventricular rate 64 bpm, MT interval 127 ms, QRS duration 98 ms, QTc 389 ms. X-rays interpreted by me (1pt min.)? @ -Chest x-ray obtained, my interpretation identifies no localized consoli dations or infiltrates. CT interpreted by me (1pt min.)? @ -CT scan of the abdomen and pelvis obtained. My interpretation identifies no evidence of bowel wall thickening or free air. U/S interpreted by me (1pt. min.)? @ -Not obtained What testing was considered but not performed? (CT, X-rays, U/S, labs)? Why? @ -None What meds were considered but not given? Why? @ -None Did you discuss the management of the patient with other professionals? @ -No Did you reconcile home meds? @ -No Was smoking cessation discussed for >3mins.? @ -No Was critical care preformed (if so, how long)? @ -No Were there social determinants of health that impacted care today? How? (Homelessness, low income, unemployed, alcoholism, drug addiction, transportation, low edu. Level, literacy, decrease access to med. care, [facility], rehab)? @ -No Was there de-escalation of care discussed even if they declined? (Discuss DNR or withdrawal of care, Hospice)? @ -No What co-morbidities impacted this encounter? (DM, HTN, Smoking, COPD, CAD, Cancer, CVA, Hep., AIDS, mental health diagnosis, sleep apnea, morbid obesity)? @ -None Was patient admitted / discharged? @ -Discharged. Lab work unremarkable, including a negative troponin and negative D-dimer. COVID, influenza, and RSV testing negative. Urinalysis nega tive for signs of infection. Chest x-ray reveals no acute process. Orthostatics obtained and found to be negative. CT scan of the abdomen and pelvis demonstrates mild asymmetric dilation of the right renal collecting system suggestive of potentially recently passed stone. She also has a nonobstr ucting right renal calculus. The appendix appears normal. No other acute process was identified. She does report a history of kidney stones. Patient treated with IV fluids and Zofran with improvement in symptoms. Advised close follow-up with her primary care provider for reevaluation. Prescription for Zofran provided with dosing instructions reviewed. Also advised getting plenty of rest and remaining well-hydrated. Patient discharged home in stable condition. Undiagnosed new problem with uncertain prognosis? @ -None Drug Therapy requiring intensive monitoring for toxicity (Heparin, Nitro, Insulin, Cardizem)? @ -None Were any procedures done? @ -None Diagnosis/symptom? @ -Syncope, nausea Acute, or Chronic, or Acute on Chronic? @ -Acute Uncomplicated (without systemic symptoms) or Complicated (systemic symptoms)? @ -Uncomplicated Side effects of treatment? @ -None Exacerbation, Progression, or Severe Exacerbation] @ -Not applicable Poses a threat to life or bodily function? @ -Unlikely Return precautions reviewed in depth, the patient is instructed to return to the emergency department with any new, worsening, or concerning symptoms. Patient verbalized understanding. This case was discussed in detail with the attending ED physician, Dr. Milton. Presentation, findings, and treatment plan discussed in detail as well. - Lab Data Result diagrams: 02/26/24 06:23 02/26/24 06:23 Lab Results 02/26/24 02/26/24 02/26/24 Range/Units 06:23 06:23 06:23 WBC 11.3 H (3.8-10.6) k/uL RBC 4.74 (3.80-5.40) m/uL Hgb 13.8 (11.4-16.0) gm/dL Hct 42.3 (34.0-46.0) % MCV 89.3 (80.0-100.0) fL MCH 29.1 (25.0-35.0) pg MCHC 32.6 (31.0-37.0) g/dL RDW 12.4 (11.5-15.5) % Plt Count 397 (150-450) k/uL MPV 7.0 Neutrophils % 50 % Lymphocytes % 42 % Monocytes % 5 % Eosinophils % 2 % Basophils % 1 % Neutrophils # 5.6 (1.3-7.7) k/uL Lymphocytes # 4.7 (1.0-4.8) k/uL Monocytes # 0.5 (0-1.0) k/uL Eosinophils # 0.2 (0-0.7) k/uL Basophils # 0.1 (0-0.2) k/uL PT 10.3 (10.0-12.5) sec INR 0.9 (<1.2) APTT 23.0 (22.0-30.0) sec D-Dimer 0.21 (<0.60) mg/L FEU Sodium 140 (137-145) mmol/L Potassium 4.3 (3.5-5.1) mmol/L Chloride 107 (98-107) mmol/L Carbon Dioxide 24 (22-30) mmol/L Anion Gap 9 mmol/L BUN 16 (7-17) mg/dL Creatinine 0.47 L (0.52-1.04) mg/dL Est GFR (CKD-EPI)AfAm >90 (>60 ml/min/1.73 sqM) Est GFR (CKD-EPI)NonAf >90 (>60 ml/min/1.73 sqM) Glucose 90 (74-99) mg/dL Calcium 9.2 (8.4-10.2) mg/dL Magnesium 2.2 (1.6-2.3) mg/dL Total Bilirubin 0.6 (0.2-1.3) mg/dL AST 23 (14-36) U/L ALT 24 (4-34) U/L Alkaline Phosphatase 94 (38-126) U/L Troponin I (0.000-0.034) ng/mL Total Protein 6.9 (6.3-8.2) g/dL Albumin 3.8 (3.5-5.0) g/dL Urine Color Urine Appearance (Clear) Urine pH (5.0-8.0) Ur Specific [place] (1.001-1.035) Urine Protein (Negative) Urine Glucose (UA) (Negative) Urine Ketones (Negative) Urine Blood (Negative) Urine Nitrite (Negative) Urine Bilirubin (Negative) Urine Urobilinogen (<2.0) mg/dL Ur Leukocyte Esterase (Negative) Urine RBC (0-5) /hpf Urine WBC (0-5) /hpf Ur Squamous Epith Cells (0-4) /hpf Calcium Oxalate Crystal (None) /hpf Amorphous Sediment (None) /hpf Influenza Type A (PCR) (Not Detectd) Influenza Type B (PCR) (Not Detectd) RSV (PCR) (Not Detectd) SARS-CoV-2 (PCR) (Not Detectd) 02/26/24 02/26/24 02/26/24 Range/Units 06:23 06:32 08:30 WBC (3.8-10.6) k/uL RBC (3.80-5.40) m/uL Hgb (11.4-16.0) gm/dL Hct (34.0-46.0) % MCV (80.0-100.0) fL MCH (25.0-35.0) pg MCHC (31.0-37.0) g/dL RDW (11.5-15.5) % Plt Count (150-450) k/uL MPV Neutrophils % % Lymphocytes % % Monocytes % % Eosinophils % % Basophils % % Neutrophils # (1.3-7.7) k/uL Lymphocytes # (1.0-4.8) k/uL Monocytes # (0-1.0) k/uL Eosinophils # (0-0.7) k/uL Basophils # (0-0.2) k/uL PT (10.0-12.5) sec INR (<1.2) APTT (22.0-30.0) sec D-Dimer (<0.60) mg/L FEU Sodium (137-145) mmol/L Potassium (3.5-5.1) mmol/L Chloride (98-107) mmol/L Carbon Dioxide (22-30) mmol/L Anion Gap mmol/L BUN (7-17) mg/dL Creatinine (0.52-1.04) mg/dL Est GFR (CKD-EPI)AfAm (>60 ml/min/1.73 sqM) Est GFR (CKD-EPI)NonAf (>60 ml/min/1.73 sqM) Glucose (74-99) mg/dL Calcium (8.4-10.2) mg/dL Magnesium (1.6-2.3) mg/dL Total Bilirubin (0.2-1.3) mg/dL AST (14-36) U/L ALT (4-34) U/L Alkaline Phosphatase (38-126) U/L Troponin I <0.012 (0.000-0.034) ng/mL Total Protein (6.3-8.2) g/dL Albumin (3.5-5.0) g/dL Urine Color Colorless Urine Appearance Cloudy H (Clear) Urine pH 7.0 (5.0-8.0) Ur Specific [place] 1.024 (1.001-1.035) Urine Protein Negative (Negative) Urine Glucose (UA) Negative (Negative) Urine Ketones Negative (Negative) Urine Blood Negative (Negative) Urine Nitrite Negative (Negative) Urine Bilirubin Negative (Negative) Urine Urobilinogen <2.0 (<2.0) mg/dL Ur Leukocyte Esterase Negative (Negative) Urine RBC 1 (0-5) /hpf Urine WBC 3 (0-5) /hpf Ur Squamous Epith Cells 5 H (0-4) /hpf Calcium Oxalate Crystal Rare H (None) /hpf Amorphous Sediment Rare H (None) /hpf Influenza Type A (PCR) Not Detected (Not Detectd) Influenza Type B (PCR) Not Detected (Not Detectd) RSV (PCR) Not Detected (Not Detectd) SARS-CoV-2 (PCR) Not Detected (Not Detectd) - Radiology Data Radiology results: report reviewed, image reviewed Disposition Clinical Impression: Syncope, Nausea Disposition: HOME SELF-CARE Instructions (If sedation given, give patient instructions): Syncope (ED) Additional Instructions: Return to the emergency department with any new, worsening, or concerning symptoms. You can take the Zofran up to every 8 hours as needed for nausea and vomiting. Make sure you get plenty of rest and drink plenty of fluids. Follow up with your primary care provider in 1-2 days. Prescriptions: Ondansetron Odt [Zofran Odt] 4 mg PO Q8HR PRN #15 tab PRN Reason: Nausea And Vomiting Is patient prescribed a controlled substance at d/c from ED?: No Referrals: Werner Shelby DO [Primary Care Provider] - 1-2 days Time of Disposition: 09:09
[2024-02-26 06:48] LABS: Basophils # (A) 0.1 k/uL (0-0.2); Basophils % (A) 1 %; Eosinophils # (A) 0.2 k/uL (0-0.7); Eosinophils % (A) 2 %; HCT 42.3 % (34.0-46.0); HGB 13.8 gm/dL (11.4-16.0); Lymphocytes # (A) 4.7 k/uL (1.0-4.8); Lymphocytes % (A) 42 %; MCH 29.1 pg (25.0-35.0); MCHC 32.6 g/dL (31.0-37.0); MCV 89.3 fL (80.0-100.0); Monocytes # (A) 0.5 k/uL (0-1.0); Monocytes % (A) 5 %; Neutrophils # (A) 5.6 k/uL (1.3-7.7); Neutrophils % (A) 50 %; Platelet Count 397 k/uL (150-450); RBC 4.74 m/uL (3.80-5.40); RDW 12.4 % (11.5-15.5); WBC 11.3 k/uL (3.8-10.6)
[2024-02-26 06:49] LABS: ALT 24 U/L (4-34); AST 23 U/L (14-36); African American GFR (CKD) >90 (>60 ml/min/1.73 sqM); Albumin 3.8 g/dL (3.5-5.0); Alkaline Phosphatase 94 U/L (38-126); Anion Gap 9 mmol/L; Blood Urea Nitrogen 16 mg/dL (7-17); Calcium 9.2 mg/dL (8.4-10.2); Carbon Dioxide 24 mmol/L (22-30); Chloride 107 mmol/L (98-107); Glucose 90 mg/dL (74-99); Magnesium 2.2 mg/dL (1.6-2.3); Non-African American GFR(CKD) >90 (>60 ml/min/1.73 sqM); Potassium 4.3 mmol/L (3.5-5.1); Sodium 140 mmol/L (137-145); Total Bilirubin 0.6 mg/dL (0.2-1.3); Total Protein 6.9 g/dL (6.3-8.2)
[2024-02-26 06:54] LABS: INR 0.9 (<1.2); Prothrombin Time 10.3 sec (10.0-12.5)
--- NOTE | 2024-02-26 06:59 | XR ---
EXAMINATION TYPE: XR chest 2V DATE OF EXAM: 02/26/2024 COMPARISON: Chest x-ray October 29, 2020 HISTORY: Syncope TECHNIQUE: Frontal and lateral views of the chest are obtained. FINDINGS: Low lung volumes are present. There is no suspicious new focal air space opacity, pleural effusion, or pneumothorax seen. The cardiac silhouette size is mildly enlarged. Cholecystectomy cli ps are redemonstrated. The osseous structures are intact. IMPRESSION: There are low lung volumes and mild cardiomegaly without acute pulmonary process.
--- NOTE | 2024-02-26 08:42 | CT ---
EXAMINATION TYPE: CT abdomen pelvis w con CT DLP: 1778.1 mGycm, Automated exposure control for dose reduction was used. DATE OF EXAM: 02/26/2024 8:16 AM COMPARISON: CT abdomen pelvis most recent from 12/28/2021 CLINICAL INDICATION:Female, 43 years old with history of RLQ abdominal pain; RLQ abd pain since Octob er 2022 TECHNIQUE: Axial CT abdomen pelvis w con;Sagittal and coronal reformats were created on a separate w orkstation. Contrast used:100 ml mL of Isovue 300 with IV Contrast, (none if empty) Oral contrast used: without Oral Contrast (none if empty) FINDINGS: LOWER CHEST: Unremarkable ABDOMEN LIVER: Diffusely hypoattenuating parenchyma. GALLBLADDER AND BILE DUCTS: The gallbladder surgically absent. PANCREAS: Unremarkable. SPLEEN: Unremarkable. ADRENAL GLANDS: Unremarkable. KIDNEYS AND URETERS: Nonobstructing right 6 mm calculus. No left renal calculi. Mild asymmetric dilat ion of the right collecting system compared to left. No left hydronephrosis. PELVIS BLADDER: Unremarkable REPRODUCTIVE: The uterus is surgically absent. ABDOMEN & PELVIS STOMACH AND BOWEL: No evidence of bowel obstruction. Appendix is normal. Scattered colonic diverticul a. PERITONEUM/RETROPERITONEUM: No evidence of pneumoperitoneum or free fluid. VASCULATURE: No evidence of aortic aneurysm. MUSCULOSKELETAL: No acute osseous abnormalities LYMPH NODES: No gross evidence for lymphadenopathy. SOFT TISSUE/ABDOMINAL WALL: Unremarkable IMPRESSION: 1. Nonobstructing right renal calculus measuring 6 mm. No evidence for right obstructive uropathy. T he appendix is normal. Correlate for recently passed stone given some asymmetric dilation of the righ t collecting system compared to the left. 2. Hepatic steatosis. 3. Colonic diverticulosis.
[2024-02-26 09:01] LABS: Amorphous Sediment,Urine Rare /hpf; Appearance,Urine Cloudy (Clear); Bilirubin,Urine Negative (Negative); Blood,Urine Negative (Negative); Calcium Oxalate Crystals,Urine Rare /hpf; Color,Urine Colorless; Glucose,Urine (UA) Negative (Negative); Ketones,Urine Negative (Negative); Leukocyte Esterase,Urine Negative (Negative); Nitrite,Urine Negative (Negative); Protein,Urine Negative (Negative); RBC,Urine 1 /hpf (0-5); Specific Gravity,Urine 1.024 (1.001-1.035); Squamous Epithelial Cell,Urine 5 /hpf (0-4); Urobilinogen,Urine <2.0 mg/dL (<2.0); WBC,Urine 3 /hpf (0-5)
[2024-02-26] MEDS: ONDANSETRON 4 MG ODT STARTER PACK 2 TAB BTL PO STA (09:26)
[2024-02-26 09:43] VITALS: BP 131/89; PULSE 72; RESP 18
== END 2024-02-26 09:32 | disposition home or self-care (01) ==
LOC: EC 06:01
DX: N20.0 Calculus of kidney (principal); R55 Syncope and collapse; R10.11 Right upper quadrant pain; Z88.5 Allergy status to narcotic agent; Z88.6 Allergy status to analgesic agent; Z91.010 Allergy to peanuts
CPT/HCPCS: 99284; 96374; 96361 ×3; 36415; 93005; 85379; 80053; 83735; 84484; 85025; 85610; 85730; 81001; 87636; 71046; 74177; J2405; S0119; Q9967

== ENCOUNTER → 2024-04-07 | Outpatient (CLI) | payer BC ==
--- NOTE | 2024-04-08 08:34 | XR ---
EXAM TYPE: LUMBAR SPINE X RAY SERIES COMPARISON: NONE HISTORY: Pain TECHNIQUE: 4 views are submitted. FINDINGS: Alignment is anatomic. The pedicles are intact. The transverse processes are intact. There is no s pondylolysis or spondylolisthesis. SI joints patent. IMPRESSION: 1. No acute process.
== END | disposition home or self-care (01) ==
LOC: RADXRYALE 16:54
PROVIDERS: ATTEND Family Medicine
DX: M51.36 Other intervertebral disc degeneration, lumbar region (principal)
CPT/HCPCS: 72110

== ENCOUNTER → 2024-05-06 | Outpatient (CLI) | payer BC ==
--- NOTE | 2024-05-06 16:26 | XR ---
EXAMINATION TYPE: XR KUB DATE OF EXAM: 05/06/2024 4:19 PM CLINICAL INDICATION:Female, 43 years old with history of N20.0 CALCULUS KIDNEY; [facility] COMPARISON: 12/28/2021. TECHNIQUE: One radiographic view of the abdomen was obtained. FINDINGS: The bowel gas pattern is nonspecific without dilated loops of small or large bowel. . Fecal material and gas are demonstrated throughout the colon and rectum. There is no evidence for organomegaly or pneumoperitoneum. The osseous structures are intact. Righ t upper quadrant cholecystectomy clips. Pelvic phleboliths are present. IMPRESSION: No renal calculi definitively visualized. Nonspecific bowel gas pattern without radiographic evidence for acute process.
== END | disposition home or self-care (01) ==
LOC: RADXRMAIN 16:08
PROVIDERS: ATTEND Urology
DX: N20.0 Calculus of kidney (principal)
CPT/HCPCS: 74018

== ENCOUNTER → 2024-05-26 | Outpatient (CLI) | payer BC ==
--- NOTE | 2024-06-19 14:40 | CT ---
Site ID synapse default Patient Jonna Culp ID [id number] Age/Gender: 44Y, F Order # N/A Procedure CT abdomen pelvis wo con Date 05/26/2024 2:42:00 PM EXAMINATION TYPE: CT abdomen pelvis wo con CT DLP: 1253.70 mGycm, Automated exposure control for dose reduction was used. DATE OF EXAM: 05/27/2024 10:20 PM COMPARISON: CT abdomen pelvis 02/26/2024, 12/28/2021 CLINICAL INDICATION: Female, 44 year old with history of kidney stone, follow-up. TECHNIQUE: Standard CT of the abdomen and pelvis without IV or oral contrast. Lack of IV or oral co ntrast limits evaluation of solid and hollow organ viscera. Coronal and sagittal reformats were perfo rmed. FINDINGS: LOWER CHEST: Mild lingular linear atelectasis. ABDOMEN LIVER: Diffusely hypoattenuating parenchyma. GALLBLADDER AND BILE DUCTS: The gallbladder is surgically absent. No biliary ductal dilatation. PANCREAS: Unremarkable noncontrast appearance SPLEEN: Unremarkable noncontrast appearance ADRENAL GLANDS: Unremarkable noncontrast appearance. KIDNEYS AND URETERS: No evidence of hydronephrosis. No left renal calculi. Slight interval enlargemen t in nonobstructive right mid kidney 7 mm calculus, previously 6 mm. New right upper pole 3 mm nonobs tructive calculus. No ureteral calculi identified. PELVIS BLADDER: Incompletely distended but grossly unremarkable. REPRODUCTIVE: The uterus is surgically absent. ABDOMEN & PELVIS STOMACH AND BOWEL: Stomach and duodenum are unremarkable. No focal bowel wall thickening or surroundi ng inflammatory changes. Few scattered colonic diverticula. The appendix is within normal limits. No evidence of bowel obstruction. PERITONEUM: No evidence of pneumoperitoneum or free fluid. VASCULATURE: No evidence of aortic aneurysm. Pelvic phleboliths. MUSCULOSKELETAL: No acute osseous abnormalities LYMPH NODES: No gross evidence for lymphadenopathy. SOFT TISSUE/ABDOMINAL WALL: Unremarkable IMPRESSION: 1. No evidence of obstructive uropathy. 2. Slight increase in size of 7 mm nonobstructive right renal calculus with new 3 mm nonobstructive r ight renal calculus. 3. Colonic diverticulosis. 4. Hepatic steatosis.
== END | disposition home or self-care (01) ==
LOC: RADCTMAIN 14:31
PROVIDERS: ATTEND Urology
DX: K57.30 Diverticulosis of large intestine without perforation or abscess without bleeding (principal); K76.0 Fatty (change of) liver, not elsewhere classified; N20.0 Calculus of kidney; Z87.442 Personal history of urinary calculi
CPT/HCPCS: 74176

== ENCOUNTER 2024-06-01 05:54 | Emergency (ER) | payer BC ==
[2024-06-01] MEDS: MORPHINE SULFATE 4 MG/ML SYRINGE IVP STA (06:27)
[2024-06-01] MEDS: ONDANSETRON 4 MG/2 ML VIAL IVP STA (06:33)
[2024-06-01] MEDS: SODIUM CHLORIDE 0.9% 1,000 ML IV STA (06:33)
[2024-06-01] MEDS: KETOROLAC 15 MG/ML 1 ML VIAL IVP STA (06:35)
[2024-06-01] MEDS: PANTOPRAZOLE 40 MG/10 ML VIAL IVP STA (06:37)
[2024-06-01 06:40] LABS: Appearance,Urine Clear (Clear); Bilirubin,Urine Negative (Negative); Blood,Urine Negative (Negative); Color,Urine Yellow; Glucose,Urine (UA) Negative (Negative); Ketones,Urine Negative (Negative); Leukocyte Esterase,Urine Negative (Negative); Nitrite,Urine Negative (Negative); PH, Urine 5.5 (5.0-8.0); Protein,Urine Negative (Negative); Specific Gravity,Urine 1.029 (1.001-1.035); Urobilinogen,Urine <2.0 mg/dL (<2.0)
[2024-06-01 06:52] LABS: Basophils % (A) 1 %; Eosinophils # (A) 0.2 k/uL (0-0.7); Eosinophils % (A) 3 %; HCT 38.3 % (34.0-46.0); HGB 12.7 gm/dL (11.4-16.0); Lymphocytes # (A) 3.9 k/uL (1.0-4.8); Lymphocytes % (A) 48 %; MCH 29.9 pg (25.0-35.0); MCHC 33.1 g/dL (31.0-37.0); MCV 90.3 fL (80.0-100.0); Mean Platelet Volume 7.7; Monocytes # (A) 0.4 k/uL (0-1.0); Monocytes % (A) 4 %; Neutrophils # (A) 3.4 k/uL (1.3-7.7); Neutrophils % (A) 42 %; Platelet Count 360 k/uL (150-450); RBC 4.25 m/uL (3.80-5.40); RDW 12.6 % (11.5-15.5); WBC 8.1 k/uL (3.8-10.6)
[2024-06-01 07:12] LABS: Chloride 107 mmol/L (98-107)
[2024-06-01 07:14] LABS: ALT 19 U/L (4-34); AST 25 U/L (14-36); African American GFR (CKD) >90 (>60 ml/min/1.73 sqM); Albumin 3.9 g/dL (3.5-5.0); Alkaline Phosphatase 83 U/L (38-126); Amylase 40 U/L (30-110); Anion Gap 6 mmol/L; Blood Urea Nitrogen 15 mg/dL (7-17); Calcium 9.2 mg/dL (8.4-10.2); Carbon Dioxide 26 mmol/L (22-30); Glucose 96 mg/dL (74-99); Lipase 123 U/L (23-300); Non-African American GFR(CKD) >90 (>60 ml/min/1.73 sqM); Potassium 4.5 mmol/L (3.5-5.1); Sodium 139 mmol/L (137-145); Total Bilirubin 0.3 mg/dL (0.2-1.3); Total Protein 6.7 g/dL (6.3-8.2)
--- NOTE | 2024-06-01 07:38 | ED ---
General Adult HPI - General Chief complaint: Back Pain/Injury Stated complaint: Kidney stones Time Seen by Provider: 06/01/24 06:48 Source: patient, RN notes reviewed Mode of arrival: ambulatory Limitations: no limitations - History of Present Illness Initial comments: 44-year-old female presents emergency department complaint of right-sided abdominal pain, flank pain. Patient has a history of kidney stones has a known 6 mm on the right but states this pain does not feel similar in all natures. Patient states she does have slight nausea without vomiting no fevers no urinary symptoms no change in bowel habits. Patient states that the pain does wax and wane - Related Data Home Medications Medication Instructions Recorded Confirmed Cetirizine HCl [Zyrtec] 10 mg PO HS 05/22/17 01/08/22 nadoloL [Corgard] 20 mg PO BID 05/22/17 01/08/22 Cranberry Fruit Extract [Cranberry] 200 mg PO HS 07/01/18 01/08/22 Multivitamins, Thera [Multivitamin 1 tab PO HS 07/01/18 01/08/22 (formulary)] Furosemide [Lasix] 30 mg PO DAILY 03/23/21 01/08/22 Cholecalciferol [Vitamin D3 (25 25 mcg PO HS 06/20/21 01/08/22 Mcg = 1000 Iu)] ALPRAZolam [Xanax] 0.125 - 0.25 mg PO BID PRN 01/08/22 01/08/22 Elderberry Fruit and Flower [Black 1 cap PO HS 01/08/22 01/08/22 Elderberry 575 mg Cap] Sertraline [Zoloft] 25 mg PO DAILY 01/08/22 01/08/22 traZODone HCL 75 mg PO HS 01/08/22 01/08/22 Previous Rx's Medication Instructions Recorded Dicyclomine [Bentyl] 20 mg PO TID PRN #15 tablet 01/08/22 Ondansetron Odt [Zofran Odt] 4 mg PO Q8HR PRN #15 tab 01/08/22 Ondansetron Odt [Zofran Odt] 4 mg PO Q8HR PRN #15 tab 02/26/24 Allergies Allergy/AdvReac Type Severity Reaction Status Date / Time NSAIDS (Non-Steroidal Allergy Anaphylaxis Verified 06/01/24 06:00 Anti-Inflamma peanut Allergy Anaphylaxis Verified 06/01/24 06:00 propoxyphene Allergy Rash/Hives Verified 06/01/24 06:00 [From [facility]] Review of Systems ROS Statement: Those systems with pertinent positive or pertinent negative responses have been documented in the HPI. ROS Other: All systems not noted in ROS Statement are negative. Past Medical History Past Medical History: No Reported History Additional Past Medical History / Comment(s): Migraines, hx. of endometriosis for 15 years., Hx. of kidney stones. History of Any Multi-Drug Resistant Organisms: None Reported Past Surgical History: Cholecystectomy, Hysterectomy, Tubal Ligation Additional Past Surgical History / Comment(s): laparoscopy x2, Lithotripsy April 2021, hyst w/ bilateral salpingectomy/oophorectomy May 2021. Past Anesthesia/Blood Transfusion Reactions: Motion Sickness, Postoperative Nausea & Vomiting (PONV) Additional Past Anesthesia/Blood Transfusion Reaction / Comment(s): no hx blood transfusion Past Psychological History: No Psychological Hx Reported Smoking Status: Never smoker Past Alcohol Use History: None Reported Past Drug Use History: None Reported - Past Family History Mother Family Medical History: No Reported History General Exam Limitations: no limitations General appearance: alert, in no apparent distress Head exam: Present: atraumatic, normocephalic, normal inspection Eye exam: Present: normal appearance, PERRL, EOMI. Absent: scleral icterus, conjunctival injection, periorbital swelling ENT exam: Present: normal exam, mucous membranes moist Neck exam: Present: normal inspection. Absent: tenderness, meningismus, lymphadenopathy Respiratory exam: Present: normal lung sounds bilaterally. Absent: respiratory distress, wheezes, rales, rhonchi, stridor Cardiovascular Exam: Present: regular rate, normal rhythm, normal heart sounds. Absent: systolic murmur, diastolic murmur, rubs, gallop, clicks GI/Abdominal exam: Present: soft, tenderness (Lower quadrant), normal bowel sounds. Absent: distended, guarding, rebound, rigid Back exam: Present: CVA tenderness (R). Absent: CVA tenderness (L) Course Vital Signs 06/01/24 06/01/24 06/01/24 05:58 06:53 07:45 Temperature 98.1 F Pulse Rate 73 70 69 Respiratory 18 16 18 Rate Blood Pressure 139/95 140/92 137/85 O2 Sat by Pulse 98 96 98 Oximetry Medical Decision Making - Medical Decision Making Was pt. sent in by a medical professional or institution (LISA Srinivasan, PLASTIC FRAME INSERTER, urgent care, hospital, or skilled nursing...) When possible be specific @ -No Did you speak to anyone other than the patient for history (EMS, parent, family, police, friend...)? What history was obtained from this source @ -No Did you review nursing and triage notes (agree or disagree)? Why? @ -I reviewed and agree with nursing and triage notes Were old charts reviewed (outside hosp., previous admission, EMS record, old EKG , old radiological studies, urgent care reports/EKG's, skilled nursing records)? Report findings @ -No old charts were reviewed Differential Diagnosis (chest pain, altered mental status, abdominal pain women, abdominal pain men, vaginal bleeding, weakness, fever, dyspnea, syncope, headache, dizziness, GI bleed, back pain, seizure, CVA, palpatations, mental health, musculoskeletal)? @ -Differential Abdominal Pain Women: Appendicitis, Cholecystitis, diverticulosis, ischemic bowel, pancreatitis, hep atitis, UTI, gastroenteritis, AAA, incarcerated hernia, bowel obstruction, constipation, inflammatory bowel, hepatitis, peptic ulcer disease, splenic infarction, perforated viscus, vulvitis, ovarian torsion, PID, kidney stone, placenta abruption, this is not meant to be an all-inclusive list EKG interpreted by me (3pts min.). @ -None X-rays interpreted by me (1pt min.). @ -[X-ray KUB shows nonspecific bowel gas pattern CT interpreted by me (1pt min.). @ -See acute abdomen pelvis showing right-sided kidney stone, no evidence of acute appendicitis, moderate stool, hepatomegaly U/S interpreted by me (1pt. min.). @ -None done What testing was considered but not performed or refused? (CT, X-rays, U/S, labs)? Why? @ -None What meds were considered but not given or refused? Why? @ -None Did you discuss the management of the patient with other professionals (professionals i.e. LISA Srinivasan, P[employer]IC FRAME INSERTER, lab, RT, psych nurse, social media marketing manager, hydrotechnical specialist, teacher, staff air defense officer, field nurse case manager)? Give summary @ -No Was smoking cessation discussed for >3mins.? @ -No Was critical care preformed (if so, how long)? @ -No Were there social determinants of health that impacted care today? How? (Homelessness, low income, unemployed, alcoholism, drug addiction, transportation, low edu. Level, literacy, decrease access to med. care, long-term, rehab)? @ -No Was there de-escalation of care discussed even if they declined (Discuss DNR or withdrawal of care, Hospice)? DNR status @ -No What co-morbidities impacted this encounter? (DM, HTN, Smoking, COPD, CAD, Cancer, CVA, ARF, Chemo, Hep., AIDS, mental health diagnosis, sleep apnea, morbid obesity)? @ -None Was patient admitted / discharged? Hospital course, mention meds given and route, prescriptions, significant lab abnormalities, going to OR and other pertinent info. @ -Discharge patient feels greatly improved this time we discharged in stable condition with follow-up return transfer discussed Undiagnosed new problem with uncertain prognosis? @ -No Drug Therapy requiring intensive monitoring for toxicity (Heparin, Nitro, Insulin, Cardizem)? @ -No Were any procedures done? @ -No Diagnosis/symptom? @ -Abdominal pain Acute, or Chronic, or Acute on Chronic? @ -Acute Uncomplicated (without systemic symptoms) or Complicated (systemic symptoms)? @ -Complicated Side effects of treatment? @ -No Exacerbation, Progression, or Severe Exacerbation? @ -No Poses a threat to life or bodily function? How? (Chest pain, [place], [place], pneumonia, PE, COPD, DKA, ARF, appy, cholecystitis, CVA, Diverticulitis, Homicidal, Suicidal, threat to staff... and all critical care pts) @ -No - Lab Data Result diagrams: 06/01/24 06:43 06/01/24 06:43 Lab Results 06/01/24 06/01/24 06/01/24 Range/Units 06:27 06:43 06:43 WBC 8.1 (3.8-10.6) k/uL RBC 4.25 (3.80-5.40) m/uL Hgb 12.7 (11.4-16.0) gm/dL Hct 38.3 (34.0-46.0) % MCV 90.3 (80.0-100.0) fL MCH 29.9 (25.0-35.0) pg MCHC 33.1 (31.0-37.0) g/dL RDW 12.6 (11.5-15.5) % Plt Count 360 (150-450) k/uL MPV 7.7 Neutrophils % 42 % Lymphocytes % 48 % Monocytes % 4 % Eosinophils % 3 % Basophils % 1 % Neutrophils # 3.4 (1.3-7.7) k/uL Lymphocytes # 3.9 (1.0-4.8) k/uL Monocytes # 0.4 (0-1.0) k/uL Eosinophils # 0.2 (0-0.7) k/uL Basophils # 0.0 (0-0.2) k/uL Sodium 139 (137-145) mmol/L Potassium 4.5 (3.5-5.1) mmol/L Chloride 107 (98-107) mmol/L Carbon Dioxide 26 (22-30) mmol/L Anion Gap 6 mmol/L BUN 15 (7-17) mg/dL Creatinine 0.66 (0.52-1.04) mg/dL Est GFR (CKD-EPI)AfAm >90 (>60 ml/min/1.73 sqM) Est GFR (CKD-EPI)NonAf >90 (>60 ml/min/1.73 sqM) Glucose 96 (74-99) mg/dL Calcium 9.2 (8.4-10.2) mg/dL Total Bilirubin 0.3 (0.2-1.3) mg/dL AST 25 (14-36) U/L ALT 19 (4-34) U/L Alkaline Phosphatase 83 (38-126) U/L Total Protein 6.7 (6.3-8.2) g/dL Albumin 3.9 (3.5-5.0) g/dL Amylase 40 (30-110) U/L Lipase 123 (23-300) U/L Urine Color Yellow Urine Appearance Clear (Clear) Urine pH 5.5 (5.0-8.0) Ur Specific [place] 1.029 (1.001-1.035) Urine Protein Negative (Negative) Urine Glucose (UA) Negative (Negative) Urine Ketones Negative (Negative) Urine Blood Negative (Negative) Urine Nitrite Negative (Negative) Urine Bilirubin Negative (Negative) Urine Urobilinogen <2.0 (<2.0) mg/dL Ur Leukocyte Esterase Negative (Negative) Disposition Clinical Impression: Abdominal pain Disposition: HOME SELF-CARE Condition: Stable Instructions (If sedation given, give patient instructions): Abdominal Pain (ED) Additional Instructions: Please return to the Emergency Department if symptoms worsen or any other concerns. Is patient prescribed a controlled substance at d/c from ED?: No Referrals: Werner Shelby DO [Primary Care Provider] - 1-2 days Time of Disposition: 09:01
[2024-06-01 07:47] VITALS: RESP 18
--- NOTE | 2024-06-01 08:50 | CT ---
EXAMINATION TYPE: CT abdomen pelvis wo con DATE OF EXAM: 06/01/2024 COMPARISON: 05/26/2024 HISTORY: 44-year-old female Abdominal pain, cramping, hx renal stones CT DLP: 1242.4 mGycm. Automated exposure control for dose reduction was used. TECHNIQUE: Contiguous axial scanning of the abdomen and pelvis without IV contrast. Coronal and sagit vinod reconstructions performed. FINDINGS: The heart is upper limits of normal in size without pericardial effusion. Lung bases clear without pl eural effusion. Liver borderline enlarged at 17.9 cm. There may be mild fatty infiltration with diminished attenuatio n. Cholecystectomy clips. Noncontrast appearance of the adrenal glands, left kidney, spleen with tiny in ferior hilar splenule, and pancreas show no gross abnormal body. A couple nonobstructive right renal calculi measuring up to 6 mm. This larger 6 mm calcification appe ars to be within a minor calyceal system. No hydronephrosis on either side. No dilated small bowel, free fluid, or free air. No mesenteric or retroperitoneal lymphadenopathy. Normal appendix. Scattered mild stool. Left-sided colonic diverticulosis. Mildly redundant mid to dis vinod sigmoid colon. No pericolonic inflammatory change. Bladder is collapsed. Pelvic lymph nodes. Uterus surgically absent. Neither ovary is visualized. No a bnormal fluid collection the pelvis or pelvic lymphadenopathy. Bones: No osseous destructive process. Facet arthropathy lower lumbar spine. IMPRESSION: 1. Mild scattered left-sided colonic diverticulosis without acute diverticulitis. 2. Hepatomegaly at 17.9 cm with mild fatty infiltration. 3. A couple nonobstructive calculi in the right kidney. The larger 6 mm stone may be within a minor calyx. No ureteral stone or obstructive uropathy seen.
[2024-06-01] MEDS: diphenhydrAMINE 50 MG/ML 1 ML VIAL IVP STA (09:16)
[2024-06-01] MEDS: ACET/COD 300 MG/30 MG STARTER PACK 6 TAB BTL PO STA (09:16)
[2024-06-01 09:20] VITALS: BP 125/77; PULSE 61; TEMP 97.9
== END 2024-06-01 09:22 | disposition home or self-care (01) ==
LOC: EC 05:54
DX: N20.0 Calculus of kidney (principal); Z88.6 Allergy status to analgesic agent; Z91.010 Allergy to peanuts; Z88.8 Allergy status to other drugs, medicaments and biological substances
CPT/HCPCS: 36415; 80053; 82150; 83690; 85025; 81003; 74018; 74176; 99284; 96374; 96375 ×3; 96361; J1200; J2405; J1885; J2470

== ENCOUNTER → 2024-06-09 | Outpatient (CLI) | payer BC ==
[2024-06-09 10:42] LABS: BUN/Creat Ratio 20.17 Ratio (12.00-20.00); Blood Urea Nitrogen 12.1 mg/dL (9.0-27.0); Calcium 9.4 mg/dL (8.7-10.3); Carbon Dioxide 25.6 mmol/L (21.6-31.8); Chloride 107 mmol/L (96-109); Glucose 116 mg/dL (70-110); Potassium 4.2 mmol/L (3.5-5.5); Sodium 142 mmol/L (135-145)
[2024-06-09 10:45] LABS: Basophils # (A) 0.04 X 10*3/uL (0.00-0.10); Basophils % (A) 0.5 %; Eosinophils # (A) 0.27 X 10*3/uL (0.04-0.35); Eosinophils % (A) 3.2 %; HGB 12.9 g/dL (12.0-15.0); Lymphocytes # (A) 3.34 X 10*3/uL (0.90-5.00); Lymphocytes % (A) 39.7 %; MCHC 31.5 g/dL (32.0-37.0); MCV 92.1 FL (80.0-97.0); Mean Platelet Volume 10.4 FL (9.5-12.2); Monocytes # (A) 0.55 X 10*3/uL (0.20-1.00); Monocytes % (A) 6.5 %; NRBC Per 100 WBC 0 X 10*3/uL (0.00-0.01); Neutrophils % (A) 49.9 %; Platelet Count 368 X 10*3/uL (140-440); RBC 4.45 X 10*6/uL (4.10-5.20); RDW 12.3 % (11.5-14.5); WBC 8.42 X 10*3/uL (4.50-10.00)
[2024-06-09 11:29] LABS: Appearance,Urine Clear (Clear); Bilirubin,Urine Negative (Negative); Blood,Urine Negative (Negative); Color,Urine Dark Yellow (Yellow); Ketones,Urine Trace (Negative); Nitrite,Urine Negative (Negative); PH, Urine 5.5; Specific Gravity,Urine >1.035 (1.001-1.030)
== END | disposition home or self-care (01) ==
LOC: LABPAT 07:23
PROVIDERS: ATTEND Urology
DX: Z01.812 Encounter for preprocedural laboratory examination (principal); N20.0 Calculus of kidney
CPT/HCPCS: 36415; 80048; 81003; 85025; 87086

== ENCOUNTER 2024-06-16 08:38 | Day surgery (SDC) | payer BC ==
--- NOTE | 2024-06-16 09:03 | XR ---
EXAMINATION TYPE: XR KUB DATE OF EXAM: 06/16/2024 Comparison: 06/01/2024 Clinical History: 44-year-old female N20.0 CALCULUS OF URETER Findings: Lung bases are clear. Cholecystectomy clips. Nonobstructive bowel gas pattern. Pelvic phleboliths. Mi nimal stool in the right side of the abdomen and distal sigmoid rectum. Possible faint 6 mm calcific ation right mid abdomen. Impression: Nonobstructive bowel gas pattern. Possible faint 6 mm right renal stone.
[2024-06-16] MEDS: IV FLUID CONTINUATION 1,000 ML IV ONE (09:20)
[2024-06-16] MEDS ORDERED: LIDOCAINE 1% (10MG/ML) FOR IV START INTRADERMA PRN (09:21)
[2024-06-16] MEDS: DEXAMETHASONE SOD PHOSPHATE 4 MG/ML 1 ML VIAL IV ONE (09:44)
[2024-06-16] MEDS: ONDANSETRON 4 MG/2 ML VIAL IVP ONE (09:45)
[2024-06-16] MEDS: SCOPOLAMINE 1 MG/72 HR PATCH TRANSDERM ONE (09:45)
[2024-06-16] MEDS: LACTATED RINGERS 1,000 ML IV SCH (09:45)
[2024-06-16] MEDS: MIDAZOLAM 2 MG/2 ML VIAL IV ONE (10:10)
--- NOTE | 2024-06-16 10:18 | P.HPIHPCON ---
History of Present Illness H&P Date: 06/16/24 Chief Complaint: Right renal stones This is a 44-year-old female history of a 7 mm right-sided renal stone and additional 2 mm right-sided renal stone she is having intractable pain secondary to her stone, option of right-sided ureteroscopy with holmium laser versus ESWL was discussed with her in detail. Risk benefit and rationale of surgery was discussed. Initially the stone was radiolucent on KUB that was done as an outpatient, discussed given that the stone is radiolucent I do recommend proceeding with ureteroscopy and holmium laser rather than ESWL. She is aware of the risk which includes but not limited to bleeding, infection, injury to the ureter Consent for Procedure: I have explained the operation/procedure to the patient, including the risks, benefits, side effects, alternative therapies (including not receiving the proposed treatment or service), the likelihood of the patient achieving his/her goals, and potential recuperation problems for the procedure/sedation/analgesia, as well as any blood products, if indicated. I also explained to the patient the risks, benefits and side effects of the alternatives, as well as the risks related to not receiving the proposed procedure, care, treatment, or services. Past Medical History Past Medical History: Asthma, GERD/Reflux, Hyperlipidemia, Hypertension, Skin Disorder, Syncope Additional Past Medical History / Comment(s): Migraines, hx. of endometriosis for 15 years., Hx. of kidney stones. past episode of syncope-thought to be vasovagal-had testing done, saw card.-no further f/u needed per pt., allergy induced asthma, eczema on legs, gets psoriasis History of Any Multi-Drug Resistant Organisms: None Reported Past Surgical History: Cholecystectomy, Hysterectomy, Tubal Ligation Additional Past Surgical History / Comment(s): laparoscopy x2, Lithotripsy April 2021, hyst w/ bilateral salpingectomy/oophorectomy May 2021. Past Anesthesia/Blood Transfusion Reactions: Motion Sickness, Postoperative Nausea & Vomiting (PONV) Additional Past Anesthesia/Blood Transfusion Reaction / Comment(s): no hx blood transfusion, scopolamine patch worked well in past Smoking Status: Never smoker - Past Family History Mother Family Medical History: No Reported History Medications and Allergies Home Medications Medication Instructions Recorded Confirmed Type Cetirizine HCl [Zyrtec] 10 mg PO HS PRN 05/22/17 06/16/24 History nadoloL [Corgard] 20 mg PO BID 05/22/17 06/16/24 History Cranberry Fruit Extract [Cranberry] 200 mg PO HS 07/01/18 06/16/24 History Multivitamins, Thera [Multivitamin 1 tab PO HS 07/01/18 06/16/24 History (formulary)] Furosemide [Lasix] 30 mg PO DAILY 03/23/21 06/16/24 History Cholecalciferol [Vitamin D3 (25 25 mcg PO HS 06/20/21 06/16/24 History Mcg = 1000 Iu)] Ondansetron Odt [Zofran Odt] 4 mg PO Q8HR PRN #15 tab 01/08/22 06/16/24 Rx Acetaminophen-Codeine 300-30mg 1 - 2 tab PO Q4-6H PRN 06/11/24 06/16/24 History [Tylenol w/codeine #3] Albuterol Inhaler [Ventolin Hfa 1 - 2 puff INHALATION Q6H PRN 06/11/24 06/16/24 History Inhaler] Ascorbic Acid [Vitamin C] 500 mg PO DAILY 06/11/24 06/16/24 History Montelukast [Singulair] 10 mg PO HS 06/11/24 06/16/24 History Rosuvastatin [Crestor] 10 mg PO DAILY 06/11/24 06/16/24 History Zinc Gluconate [Zinc] 50 mg PO DAILY 06/11/24 06/16/24 History clonazePAM [Clonazepam] 0.5 - 1 mg PO HS 06/11/24 06/16/24 History Allergies Allergy/AdvReac Type Severity Reaction Status Date / Time NSAIDS (Non-Steroidal Allergy Anaphylaxis Verified 06/16/24 09:24 Anti-Inflamma peanut Allergy Anaphylaxis Verified 06/16/24 09:24 propoxyphene Allergy Rash/Hives Verified 06/16/24 09:24 [From [facility]] Surgical - Exam Vital Signs Temp Pulse Resp BP Pulse Ox 97.2 F L 67 16 167/77 98 06/16/24 09:50 06/16/24 09:50 06/16/24 09:50 06/16/24 09:50 06/16/24 09:50 - General no distress, no pain - Eyes no pale - ENT normal nares, normal mucosa - Respiratory normal expansion, normal respiratory effort - Abdomen Abdomen: soft, non tender, no distended Assessment and Plan Assessment: OR for right-sided ureteroscopy, holmium laser lithotripsy, stone basketing and possible stent insertion
[2024-06-16] MEDS ORDERED: SUCCINYLCHOLINE CHLORIDE 200 MG/10 ML VIAL IV ONE (10:29)
[2024-06-16] MEDS ORDERED: LIDOCAINE 1% INJ 10MG/ML (20 ML MDV) ONE (10:29)
[2024-06-16] MEDS ORDERED: fentaNYL (PF) 50 MCG/ML 2 ML AMP ONE (10:29)
[2024-06-16] MEDS ORDERED: PROPOFOL 10 MG/ML 20 ML VIAL IV ONE (10:29)
[2024-06-16] MEDS ORDERED: ALBUTEROL HFA INHALER INHALATION ONE (10:29)
[2024-06-16] MEDS ORDERED: MIDAZOLAM 2 MG/2 ML VIAL ONE (10:29)
--- NOTE | 2024-06-16 11:28 | P.OP ---
Date of Procedure: 06/16/24 Preoperative Diagnosis: Right renal stone Postoperative Diagnosis: Same Procedure(s) Performed: Cystoscopy, right ureteroscopy, holmium laser lithotripsy stone basketing Implants: None Anesthesia: SHIVANIA Surgeon: Tristan Joe Estimated Blood Loss (ml): 5 Pathology: other (Right renal stone) Condition: stable Disposition: PACU Indications for Procedure: This is a 44-year-old female history of a 7 mm right-sided renal stone and additional 2 mm right-sided renal stone she is having intractable pain secondary to her stone, option of right-sided ureteroscopy with holmium laser versus ESWL was discussed with her in detail. Risk benefit and rationale of surgery was discussed. Initially the stone was radiolucent on KUB that was done as an outpatient, discussed given that the stone is radiolucent I do recommend proceeding with ureteroscopy and holmium laser rather than ESWL. She is aware of the risk which includes but not limited to bleeding, infection, injury to the ureter Operative Findings: Large stone in the right mid pole and additional smaller stone, the stone was obstructing the calyx Description of Procedure: Patient brought the operating room, general anesthesia was induced. She was prepped and draped in sterile fashion placed in dorsal lithotomy position. Cystoscopy with a 21 Swiss sheath was inserted per urethra, cystoscopy was performed which showed no abnormality within the bladder. Attention was then carried to the right ureteral orifice which was intubated with a sensor wire. The wire was advanced under fluoroscopy into the kidney. Next the flexible ureteroscope was backloaded over the wire and advanced under fluoroscopy into the kidney, renoscopy was performed showed a large stone in the midpole of the kidney and an additional adjacent smaller stone was next to it. Using the holmium laser the stone was dusted, repeat renoscopy showed no sizable fragments or injury to the kidney, on fluoroscopy there was no radiopaque density seen. One of the smaller pieces was grasped and removed using the stone basket in order to be sent for analysis. Pullback ureteroscopy was performed as the fragment was grasped which showed no injury to the ureter or any ureteral stones. There was no ureteral edema thus a stent was not placed. The bladder was emptied at the end of the case. Patient tolerated procedure was taken to recovery in stable condition
[2024-06-16 11:32] VITALS: TEMP 98.4
--- NOTE | 2024-06-16 11:39 | FL ---
EXAMINATION TYPE: FL guidance operating room DATE OF EXAM: 06/16/2024 Comparison: None Clinical History: 44-year-old female CYSTO LITHO RT RENAL CALCULI Findings: Cysto for right kidney stone 8sec fluoro time .[id number] Joe One image submitted
[2024-06-16] MEDS: droPERidol 5 MG/2 ML VIAL IVP ONE (11:42)
[2024-06-16] MEDS: HYDROmorphone 0.5 MG/0.5 ML SYRINGE IVP PRN (12:15)
[2024-06-16 14:09] VITALS: RESP 14
[2024-06-16 14:14] VITALS: BP 137/63; PULSE 64
== END 2024-06-16 14:22 | disposition home or self-care (01) ==
LOC: OR 08:38
PROVIDERS: ATTEND Urology
DX: N20.2 Calculus of kidney with calculus of ureter (principal); E78.5 Hyperlipidemia, unspecified; I10 Essential (primary) hypertension; J45.909 Unspecified asthma, uncomplicated; K21.9 Gastro-esophageal reflux disease without esophagitis; Z88.6 Allergy status to analgesic agent; Z90.49 Acquired absence of other specified parts of digestive tract; Z90.79 Acquired absence of other genital organ(s); Z90.710 Acquired absence of both cervix and uterus; Z90.722 Acquired absence of ovaries, bilateral
CPT/HCPCS: 74018; 82365

== ENCOUNTER → 2024-08-14 | Outpatient (CLI) | payer BC ==
--- NOTE | 2024-08-17 09:31 | MM ---
Reason for Exam: Screening (asymptomatic). Last mammogram was performed 1 year(s) and 1 month(s) ago. Patient History: Menarche at age 12. Patient has no children. Left ovary removed at age 40. Right ovary removed at age 40. Hysterectomy at age 40. Postmenopausal. Patient used Hormonal Contraceptives for 15 years. Paternal grandmother had breast cancer, age 50. Maternal aunt had breast cancer, age 60. Paternal aunt had breast cancer, age 63. Risk Values: Tiffany 5 year model risk: 0.9%. NCI Lifetime model risk: 10.7%. Prior Study Comparison: 07/19/2021 Bilateral Screening Mammogram, [facility]. 07/27/2022 Bilateral MG 3D screening mammo w/cad, [facility]. 08/02/2023 Bilateral MG 3D screening mammo w/cad, [facility]. Tissue Density: The breasts are almost entirely fatty. Findings: Analyzed By CAD. Right breast: There is no suspicious group of microcalcifications or new suspicious mass. Left breast: There is no suspicious group of microcalcifications or new suspicious mass. Overall Assessment: Negative, BI-RAD 1 Management: Screening Mammogram of both breasts in [address] [facility] will attempt to contact patient to return for supplemental views and ultrasound if indicated. Patient should continue monthly self-breast exams. A clinical breast exam by your physician is recommended on an annual basis. This exam should not preclude additional follow-up of suspicious palpable abnormalities. Note on Tiffany scores and lifetime risk: 1. A Tiffany score greater than 3% is considered moderate risk. If this is the case, consider specialist referral to assess eligibility for a risk reducing agent. 2. If overall lifetime risk for the development of breast cancer is 20% or higher, the patient may qualify for future screening with alternating mammogram and breast MRI. [facility], , 08/17/2024 9:29 AM. Electronically signed and approved by: Carson Kerr DO
== END | disposition home or self-care (01) ==
LOC: RADMAMWWP 14:23
PROVIDERS: ATTEND Family Medicine
DX: Z12.31 Encounter for screening mammogram for malignant neoplasm of breast (principal); Z78.0 Asymptomatic menopausal state; Z80.3 Family history of malignant neoplasm of breast; Z90.722 Acquired absence of ovaries, bilateral; Z92.0 Personal history of contraception
CPT/HCPCS: 77063; 77067

== ENCOUNTER → 2025-05-03 | Outpatient (CLI) | payer BC ==
--- NOTE | 2025-05-03 10:10 | XR ---
EXAMINATION TYPE: XR ankle complete RT DATE OF EXAM: 05/03/2025 COMPARISON: NONE HISTORY: Pain TECHNIQUE: Frontal, lateral and oblique images of the right ankle are obtained. FINDINGS: There is no acute fracture/dislocation evident. The joint spaces appear within normal jara its. The overlying soft tissue appears unremarkable. IMPRESSION: There is no acute fracture or dislocation seen. [facility], , 05/03/2025 10:07 AM
== END | disposition home or self-care (01) ==
LOC: RADXRYALE 09:37
PROVIDERS: ATTEND Family Medicine
DX: M25.571 Pain in right ankle and joints of right foot (principal)